=== PATIENT | female | born 1990 | race Caucasian/White ===

== ENCOUNTER 2017-03-14 09:38 | Emergency (ER) | payer MEDICAID ==
[~2017-03-14] VITALS: Ht 170.2 cm; Wt 69.4 kg
[~2017-03-14 09:38] MED LIST: ASPI325T17 PO; HYDR-3237 PO; NIFE10CA2 PO; None per pt; POLY17PO3 PO
[2017-03-14] MEDS ORDERED: MAALOX/HYOSCYAMINE/LIDOCAINE 45 ML BTL ONE (10:20)
[2017-03-14] MEDS ORDERED: MAALOX/HYOSCYAMINE/LIDOCAINE 45 ML BTL PO ONE (10:30)
[2017-03-14 10:50] LABS: HEMATOCRIT 46.1 % (34.6-47.8); HEMOGLOBIN 15.9 g/dL (11.7-16.4); WHITE BLOOD COUNT 8.9 x10^3/uL (3.4-10)
[2017-03-14 11:10] LABS: BLOOD UREA NITROGEN 9 mg/dL (7-18)
[2017-03-14 11:16] LABS: ASPARTATE AMINO TRANSFERASE 17 U/L (15-37)
[2017-03-14 12:35] VITALS: BP 135/75
== END 2017-03-14 12:37 | disposition home or self-care (01) ==
LOC: ED 10:14
DX: R10.84 Generalized abdominal pain (principal); J02.9 Acute pharyngitis, unspecified
CPT/HCPCS: 36415; 80053; 81003; 83690; 84703; 85025; 86677; 99284

== ENCOUNTER 2017-10-20 13:44 | Inpatient (IN) | payer MEDICAID ==
[~2017-10-20] VITALS: Ht 170.2 cm; Wt 75.3 kg
[2017-10-20] MEDS ORDERED: ONDANSETRON ODT 4 MG ONE (15:04)
[2017-10-20 15:26] LABS: BASOPHILS % (AUTO) 0 % (0-1); EOSINOPHILS # (AUTO) 0.01 x10^3/uL (0-0.4); EOSINOPHILS % (AUTO) 0 % (1-7); LYMPHOCYTES # (AUTO) 0.98 x10^3/uL (1-3.4); LYMPHOCYTES % (AUTO) 7 % (22-44); MD NO; MEAN CORPUSCULAR HGB CONC 34.1 g/dL (32.4-35.8); MEAN CORPUSCULAR VOLUME 96.7 fL (80-100); MEAN PLATELET VOLUME 8.5 fL (7.4-10.4); MONOCYTES # (AUTO) 0.28 x10^3/uL (0.2-0.8); MONOCYTES % (AUTO) 2 % (2-9); NEUTROPHILS # (AUTO) 13.64 x10^3/uL (1.8-6.8); NEUTROPHILS % (AUTO) 92 % (42-75); PLATELET COUNT 429 x10^3/uL (130-400); RED BLOOD COUNT 4.86 x10^6/uL (3.82-5.3); RED CELL DISTRIBUTION WIDTH 13.6 % (9.6-15.2)
[2017-10-20] MEDS ORDERED: ONDANSETRON ODT 4 MG PO ONE (15:30)
[2017-10-20 15:34] LABS: CALCIUM 9.1 mg/dL (8.5-10.1); CHLORIDE 111 mmol/L (98-107)
[2017-10-20 15:42] LABS: ALBUMIN 4.1 g/dL (3.4-5.0); ALKALINE PHOSPHATASE 77 U/L (45-117); ANION GAP 11 mmol/L (5-15); BILIRUBIN,TOTAL 0.9 mg/dL (0.2-1.0); CREATININE 0.83 mg/dL (0.55-1.02); TOTAL PROTEIN 8.3 g/dL (6.4-8.2)
[2017-10-20 15:48] LABS: ALANINE AMINOTRANSFERASE 24 U/L (12-78)
[2017-10-20] MEDS ORDERED: METOCLOPRAMIDE 5 MG/ML, 2ML ONE (16:01)
[2017-10-20] MEDS ORDERED: DICYCLOMINE 10 MG/ML, 2ML ONE (16:01)
[2017-10-20] MEDS ORDERED: DICYCLOMINE 10 MG/ML, 2ML IM ONE (16:30)
[2017-10-20] MEDS ORDERED: METOCLOPRAMIDE 5 MG/ML, 2ML IVPush ONE (16:30)
[2017-10-20 16:48] LABS: MICROSCOPIC INDICATED
[2017-10-20] MEDS ORDERED: SODIUM CHLORIDE 0.9% 1,000ML IVBOLUS ONE ×2 (17:00→17:30)
[2017-10-20 17:01] LABS: CULTURE INDICATED? NO
[2017-10-20] MEDS ORDERED: KETOROLAC 30 MG/1 ML ONE (17:47)
[2017-10-20] MEDS ORDERED: KETOROLAC 30 MG/1 ML IVPush ONE (18:00)
[2017-10-20] MEDS ORDERED: PROMETHAZINE 25 MG/ML, 1ML ONE (18:07)
[2017-10-20] MEDS ORDERED: PROMETHAZINE 25 MG/ML, 1ML IM ONE (18:30)
[2017-10-20] MEDS ORDERED: NS + 20MEQ KCL 1,000 ML IV SCH (19:03)
[2017-10-20] MEDS ORDERED: ZOLPIDEM 5MG TABLET PO PRN (19:30)
[2017-10-20] MEDS ORDERED: ONDANSETRON 2MG/ML, 2ML IVPush PRN (19:30)
[2017-10-20] MEDS ORDERED: ACETAMINOPHEN 325 MG TABLET PO PRN (19:30)
[2017-10-20] MEDS: PROMETHAZINE 25 MG/ML, 1ML IM PRN (22:09)
[2017-10-20] MEDS: NS + 20MEQ KCL 1,000 ML IV SCH (22:50)
[2017-10-20 22:53] VITALS: BP 129/79
[2017-10-21 01:02] LABS: MICROSCOPIC INDICATED
[2017-10-21 01:15] LABS: CULTURE INDICATED? NO
[2017-10-21 01:29] VITALS: BP 95/56
[2017-10-21] MEDS: METOCLOPRAMIDE 5 MG/ML, 2ML IVPush PRN ×4 (01:41→21:06)
[2017-10-21 01:42] LABS: CLOSTRIDIUM DIFFICILE ANTIGEN NEGATIVE; CLOSTRIDIUM DIFFICILE TOXIN NEGATIVE (Negative)
[2017-10-21 05:25] LABS: ANION GAP 11 mmol/L (5-15); CALCIUM 7.5 mg/dL (8.5-10.1); CHLORIDE 110 mmol/L (98-107)
[2017-10-21 05:28] LABS: CREATININE 0.65 mg/dL (0.55-1.02)
[2017-10-21] MEDS: PROMETHAZINE 25 MG/ML, 1ML IM PRN ×4 (06:04→23:17)
[2017-10-21] MEDS ORDERED: POTASSIUM CHLORIDE 20 MEQ TAB.ER.PRT PO ONE (06:30)
[2017-10-21 07:46] VITALS: BP 115/64
[2017-10-21] MEDS ORDERED: KETOROLAC 30 MG/1 ML IVPush SCH (09:00)
[2017-10-21] MEDS ORDERED: POTASSIUM CHLORIDE 40 MEQ in SODIUM CHLORIDE 0.9% 500 ML IV ONE (09:00)
[2017-10-21] MEDS: NS + 20MEQ KCL 1,000 ML IV SCH (09:04)
[2017-10-21] MEDS ORDERED: PROCHLORPERAZINE 5 MG/ML, 2ML IV PRN (12:30)
[2017-10-21 13:23] VITALS: BP 135/86
[2017-10-21] MEDS: KETOROLAC 30 MG/1 ML IVPush SCH ×2 (15:30→21:06)
[2017-10-21 19:20] VITALS: BP 106/65
[2017-10-22 02:19] VITALS: BP 128/79
[2017-10-22] MEDS: PROMETHAZINE 25 MG/ML, 1ML IM PRN ×2 (02:39→08:00)
[2017-10-22] MEDS: METOCLOPRAMIDE 5 MG/ML, 2ML IVPush PRN (02:39)
[2017-10-22] MEDS: NS + 20MEQ KCL 1,000 ML IV SCH ×2 (02:39→11:50)
[2017-10-22] MEDS: KETOROLAC 30 MG/1 ML IVPush SCH ×3 (02:39→11:02)
[2017-10-22 06:27] LABS: ANION GAP 8 mmol/L (5-15); CHLORIDE 115 mmol/L (98-107)
[2017-10-22] MEDS ORDERED: PROCHLORPERAZINE 5 MG/ML, 2ML IV PRN (07:30)
[2017-10-22] MEDS ORDERED: MAALOX/HYOSCYAMINE/LIDOCAINE 45 ML BTL PO ONE (07:30)
[2017-10-22] MEDS ORDERED: ONDANSETRON ODT 8 MG PO PRN (07:30)
[2017-10-22 07:50] LABS: ALKALINE PHOSPHATASE 54 U/L (45-117); BILIRUBIN,TOTAL 0.5 mg/dL (0.2-1.0); TOTAL PROTEIN 6.1 g/dL (6.4-8.2)
[2017-10-22 08:14] VITALS: BP 129/81
[2017-10-22 08:32] LABS: ALANINE AMINOTRANSFERASE 25 U/L (12-78)
[2017-10-22] MEDS ORDERED: LORazepam 2 MG/ML, 1ML IVPush ONE (11:30)
[2017-10-22 12:44] VITALS: BP 109/68
[2017-10-22] MEDS ORDERED: KETO10TA PO (16:31)
[2017-10-22] MEDS ORDERED: ONDA4TAB13 SL (16:31)
[2017-10-22] MEDS ORDERED: PROC5TAB40 PO (16:31)
== END 2017-10-22 17:40 | disposition home or self-care (01) | DRG 394 ==
LOC: ED 17:10 → EDIP 18:14 → INTOOBSV 18:14 → 4NOR 20:10 → OBSVTOIN 10-21 12:18
PROVIDERS: ADMIT Family Medicine; ATTEND Family Medicine
DX: K52.1 Toxic gastroenteritis and colitis (principal); N17.9 Acute kidney failure, unspecified; E87.2 Acidosis; A08.4 Viral intestinal infection, unspecified; R51 Headache; E86.9 Volume depletion, unspecified; E87.8 Other disorders of electrolyte and fluid balance, not elsewhere classified; E86.0 Dehydration; F17.210 Nicotine dependence, cigarettes, uncomplicated; R81 Glycosuria; E87.6 Hypokalemia; I25.10 Atherosclerotic heart disease of native coronary artery without angina pectoris; Z82.49 Family history of ischemic heart disease and other diseases of the circulatory system; Z97.5 Presence of (intrauterine) contraceptive device
CPT/HCPCS: 36415; 76705; 80048; 80053; 81001; 83690; 84703; 85025; 87046; 87324; 87427; 87798; 89055; 96361; 96372; 96374; 96375; G0378; J1885; J2550; J3480; Q0162; J0500; J0780; J2060; J2765; J7030; J7040

== ENCOUNTER 2018-01-17 11:11 | Inpatient (IN) | payer MEDICAID ==
[~2018-01-17] VITALS: Ht 167.6 cm; Wt 72.8 kg
[~2018-01-17 11:11] MED LIST changes: +KETO10TA PO; +ONDA4TAB13 SL; +PROC5TAB40 PO
[2018-01-17] MEDS ORDERED: ONDANSETRON ODT 4 MG PO ONE (12:00)
[2018-01-17] MEDS ORDERED: ONDANSETRON ODT 4 MG ONE (12:15)
[2018-01-17] MEDS ORDERED: PROMETHAZINE 25 MG/ML, 1ML ONE (12:15)
[2018-01-17] MEDS ORDERED: FAMOTIDINE 20 MG/2 ML ONE (12:16)
[2018-01-17 12:25] LABS: BASOPHILS # (AUTO) 0.03 x10^3/uL (0-0.1); BASOPHILS % (AUTO) 0 % (0-1); EOSINOPHILS # (AUTO) 0.13 x10^3/uL (0-0.4); EOSINOPHILS % (AUTO) 1 % (1-7); LYMPHOCYTES % (AUTO) 14 % (22-44); MD NO; MEAN CORPUSCULAR HEMOGLOBIN 32.6 pg (27.0-34.8); MEAN CORPUSCULAR HGB CONC 33.7 g/dL (32.4-35.8); MEAN CORPUSCULAR VOLUME 96.8 fL (80-100); MEAN PLATELET VOLUME 8.3 fL (7.4-10.4); MONOCYTES # (AUTO) 0.32 x10^3/uL (0.2-0.8); MONOCYTES % (AUTO) 2 % (2-9); NEUTROPHILS # (AUTO) 12.15 x10^3/uL (1.8-6.8); NEUTROPHILS % (AUTO) 83 % (42-75); PLATELET COUNT 445 x10^3/uL (130-400); RED BLOOD COUNT 4.82 x10^6/uL (3.82-5.3); RED CELL DISTRIBUTION WIDTH 14.3 % (9.6-15.2)
[2018-01-17 12:30] LABS: ALBUMIN 3.7 g/dL (3.4-5.0); ANION GAP 11 mmol/L (5-15); CALCIUM 8.9 mg/dL (8.5-10.1); CHLORIDE 110 mmol/L (98-107)
[2018-01-17] MEDS ORDERED: SODIUM CHLORIDE 0.9% 1,000ML IVBOLUS ONE ×3 (12:30→17:00)
[2018-01-17] MEDS ORDERED: PROMETHAZINE 25 MG/ML, 1ML IM ONE (12:30)
[2018-01-17] MEDS ORDERED: SODIUM CHLORIDE FLUSH 10ML SYR IVF ONE (12:30)
[2018-01-17] MEDS ORDERED: FAMOTIDINE 20 MG/2 ML IVP ONE (12:30)
[2018-01-17 12:37] LABS: ALANINE AMINOTRANSFERASE 27 U/L (12-78); ALKALINE PHOSPHATASE 84 U/L (45-117); BILIRUBIN,TOTAL 0.6 mg/dL (0.2-1.0); CREATININE 0.79 mg/dL (0.55-1.02); TOTAL PROTEIN 7.6 g/dL (6.4-8.2)
[2018-01-17] MEDS ORDERED: MAALOX/HYOSCYAMINE/LIDOCAINE 45 ML BTL PO ONE (13:30)
[2018-01-17] MEDS ORDERED: METOCLOPRAMIDE 5 MG/ML, 2ML ONE (14:55)
[2018-01-17] MEDS ORDERED: METOCLOPRAMIDE 5 MG/ML, 2ML IVPush ONE (15:00)
[2018-01-17] MEDS ORDERED: ONDANSETRON 2MG/ML, 2ML ONE (15:12)
[2018-01-17] MEDS ORDERED: ONDANSETRON 2MG/ML, 2ML IVPush ONE (15:30)
[2018-01-17] MEDS ORDERED: ENOXAPARIN 40 MG/0.4 ML SQ SCH (16:00)
[2018-01-17] MEDS ORDERED: ACETAMINOPHEN 325 MG TABLET PO PRN (16:00)
[2018-01-17] MEDS ORDERED: SODIUM CHLORIDE FLUSH 10ML SYR IVF PRN (16:00)
[2018-01-17] MEDS ORDERED: METOCLOPRAMIDE 5 MG/ML, 2ML IVPush PRN (16:00)
[2018-01-17] MEDS ORDERED: KETOROLAC 10MG TABLET PO PRN (16:30)
[2018-01-17 16:51] LABS: MICROSCOPIC INDICATED
[2018-01-17 16:53] LABS: CULTURE INDICATED? YES
[2018-01-17 18:11] VITALS: BP 118/81
[2018-01-17 19:54] VITALS: BP 131/73
[2018-01-17] MEDS: FAMOTIDINE 20 MG/2 ML IVPush SCH (20:03)
[2018-01-17] MEDS: ONDANSETRON 2MG/ML, 2ML IVPush PRN (20:56)
[2018-01-17] MEDS: LACTATED RINGERS 1,000 ML IV SCH (21:33)
[2018-01-18 02:30] VITALS: BP 107/62
[2018-01-18 04:41] LABS: BASOPHILS # (AUTO) 0.07 x10^3/uL (0-0.1); BASOPHILS % (AUTO) 1 % (0-1); EOSINOPHILS # (AUTO) 0.03 x10^3/uL (0-0.4); EOSINOPHILS % (AUTO) 0 % (1-7); LYMPHOCYTES # (AUTO) 2.63 x10^3/uL (1-3.4); LYMPHOCYTES % (AUTO) 18 % (22-44); MD NO; MEAN CORPUSCULAR HEMOGLOBIN 32.1 pg (27.0-34.8); MEAN CORPUSCULAR HGB CONC 33.5 g/dL (32.4-35.8); MONOCYTES # (AUTO) 0.86 x10^3/uL (0.2-0.8); MONOCYTES % (AUTO) 6 % (2-9); NEUTROPHILS % (AUTO) 76 % (42-75); PLATELET COUNT 401 x10^3/uL (130-400); RED CELL DISTRIBUTION WIDTH 14.3 % (9.6-15.2)
[2018-01-18 04:43] LABS: ALANINE AMINOTRANSFERASE 22 U/L (12-78); ALBUMIN 2.8 g/dL (3.4-5.0); ANION GAP 8 mmol/L (5-15); CALCIUM 7.8 mg/dL (8.5-10.1); CHLORIDE 112 mmol/L (98-107)
[2018-01-18 04:46] LABS: ALKALINE PHOSPHATASE 62 U/L (45-117); BILIRUBIN,TOTAL 0.7 mg/dL (0.2-1.0); CREATININE 0.58 mg/dL (0.55-1.02); TOTAL PROTEIN 5.9 g/dL (6.4-8.2)
[2018-01-18] MEDS: LACTATED RINGERS 1,000 ML IV SCH (06:26)
[2018-01-18 07:45] VITALS: BP 133/80
[2018-01-18] MEDS: FAMOTIDINE 20 MG/2 ML IVPush SCH (10:19)
[2018-01-18] MEDS: ONDANSETRON 2MG/ML, 2ML IVPush PRN ×2 (10:25→16:21)
[2018-01-18] MEDS ORDERED: METOCLOPRAMIDE 10MG TABLET PO PRN (10:30)
[2018-01-18] MEDS ORDERED: ONDANSETRON ODT 8 MG PO PRN (11:00)
[2018-01-18 14:56] VITALS: BP 135/88
[2018-01-18] MEDS ORDERED: METO10TA2 PO (15:49)
[2018-01-18] MEDS ORDERED: ONDA8TAB16 PO (15:49)
== END 2018-01-18 16:59 | disposition home or self-care (01) | DRG 392 ==
LOC: ED 12:02 → EDIP 15:37 → 3NE 17:04
PROVIDERS: ADMIT Family Medicine; ATTEND Family Medicine
DX: R11.2 Nausea with vomiting, unspecified (principal); F19.20 Other psychoactive substance dependence, uncomplicated; F12.90 Cannabis use, unspecified, uncomplicated; E86.0 Dehydration; F17.200 Nicotine dependence, unspecified, uncomplicated; Z82.49 Family history of ischemic heart disease and other diseases of the circulatory system; K52.9 Noninfective gastroenteritis and colitis, unspecified; Z82.62 Family history of osteoporosis; T40.7X5A Adverse effect of cannabis (derivatives), initial encounter; Y92.89 Other specified places as the place of occurrence of the external cause
CPT/HCPCS: 36415; 99285; S0028; 80053; 81001; 83605; 83690; 84703; 85025; 87086; 96361; 96372; 96374; 96375; J1650; J2405; J2550; Q0162; J2765; J7030; J7120

== ENCOUNTER 2018-03-18 07:34 | Observation (INO) | payer MEDICAID ==
[~2018-03-18] VITALS: Ht 167.6 cm; Wt 71.7 kg
[~2018-03-18 07:34] MED LIST changes: +METO10TA2 PO; +NIFE30TA15 PO; +ONDA8TAB16 PO
[2018-03-18] MEDS ORDERED: HALOPERIDOL 5 MG/ML ONE (08:54)
[2018-03-18 08:59] LABS: BASOPHILS # (AUTO) 0.01 x10^3/uL (0-0.1); BASOPHILS % (AUTO) 0 % (0-1); EOSINOPHILS # (AUTO) 0.28 x10^3/uL (0-0.4); EOSINOPHILS % (AUTO) 2 % (1-7); LYMPHOCYTES # (AUTO) 1.84 x10^3/uL (1-3.4); LYMPHOCYTES % (AUTO) 12 % (22-44); MD NO; MEAN CORPUSCULAR HEMOGLOBIN 32.3 pg (27.0-34.8); MEAN CORPUSCULAR VOLUME 94.8 fL (80-100); MONOCYTES # (AUTO) 0.57 x10^3/uL (0.2-0.8); MONOCYTES % (AUTO) 4 % (2-9); NEUTROPHILS % (AUTO) 82 % (42-75); PLATELET COUNT 447 x10^3/uL (130-400); RED BLOOD COUNT 4.48 x10^6/uL (3.82-5.3); RED CELL DISTRIBUTION WIDTH 15.6 % (9.6-15.2)
[2018-03-18] MEDS ORDERED: HALOPERIDOL 5 MG/ML IV ONE (09:00)
[2018-03-18] MEDS ORDERED: DIPHENHYDRAMINE 50 MG/ML, 1ML IVPush ONE (09:00)
[2018-03-18] MEDS ORDERED: SODIUM CHLORIDE 0.9% 1,000ML IVBOLUS ONE (09:00)
[2018-03-18 09:11] LABS: ALANINE AMINOTRANSFERASE 22 U/L (12-78); ALBUMIN 3.4 g/dL (3.4-5.0); ANION GAP 8 mmol/L (5-15); CALCIUM 8.3 mg/dL (8.5-10.1); CHLORIDE 109 mmol/L (98-107); CREATININE 0.79 mg/dL (0.55-1.02)
[2018-03-18 09:16] LABS: ALKALINE PHOSPHATASE 66 U/L (45-117); BILIRUBIN,TOTAL 0.5 mg/dL (0.2-1.0); TOTAL PROTEIN 6.9 g/dL (6.4-8.2)
[2018-03-18] MEDS ORDERED: PROMETHAZINE 25 MG/ML, 1ML IM ONE (11:00)
[2018-03-18] MEDS ORDERED: PROMETHAZINE 25 MG/ML, 1ML ONE (11:23)
[2018-03-18] MEDS ORDERED: METOCLOPRAMIDE 5 MG/ML, 2ML IVPush PRN (11:30)
[2018-03-18] MEDS ORDERED: ONDANSETRON ODT 4 MG PO PRN (11:30)
[2018-03-18] MEDS ORDERED: POLYETHYLENE GLYCOL 17 GM PACKET PO PRN (11:30)
[2018-03-18] MEDS ORDERED: DOCUSATE 100 MG CAPSULE PO PRN (11:30)
[2018-03-18 11:56] VITALS: BP 130/72
[2018-03-18 12:56] VITALS: BP 130/72
[2018-03-18] MEDS: POTASSIUM CHLORIDE 30 MEQ in SODIUM CHLORIDE 0.45% 1,000 ML IV SCH (13:43)
[2018-03-18] MEDS: PROMETHAZINE 25 MG/ML, 1ML IM PRN ×3 (14:00→23:01)
[2018-03-18 14:03] LABS: MICROSCOPIC INDICATED
[2018-03-18 15:28] LABS: AMPHETAMINE SCREEN, URINE Negative (Negative); BARBITURATE SCREEN, URINE Negative (Negative); BENZODIAZEPINE SCREEN, URINE Negative (Negative); CANNABINOID SCREEN, URINE Positive (Negative); COCAINE SCREEN, URINE Negative (Negative); METHADONE SCREEN, URINE Negative (Negative); OPIATE SCREEN, URINE Negative (Negative)
[2018-03-18] MEDS: POTASSIUM CHLORIDE 20 MEQ TAB.ER.PRT PO SCH (17:56)
[2018-03-18 19:33] VITALS: BP 111/66
[2018-03-19 01:52] VITALS: BP 104/69
[2018-03-19] MEDS: POTASSIUM CHLORIDE 30 MEQ in SODIUM CHLORIDE 0.45% 1,000 ML IV SCH (03:51)
[2018-03-19 05:18] LABS: ANION GAP 8 mmol/L (5-15); CALCIUM 8.4 mg/dL (8.5-10.1); CHLORIDE 111 mmol/L (98-107)
[2018-03-19 05:20] LABS: BASOPHILS # (AUTO) 0.07 x10^3/uL (0-0.1); BASOPHILS % (AUTO) 1 % (0-1); CREATININE 0.63 mg/dL (0.55-1.02); EOSINOPHILS # (AUTO) 0.32 x10^3/uL (0-0.4); EOSINOPHILS % (AUTO) 3 % (1-7); LYMPHOCYTES # (AUTO) 3.68 x10^3/uL (1-3.4); LYMPHOCYTES % (AUTO) 38 % (22-44); MD NO; MEAN CORPUSCULAR HEMOGLOBIN 31.6 pg (27.0-34.8); MEAN CORPUSCULAR HGB CONC 33.2 g/dL (32.4-35.8); MEAN CORPUSCULAR VOLUME 95.2 fL (80-100); MEAN PLATELET VOLUME 8.7 fL (7.4-10.4); MONOCYTES % (AUTO) 7 % (2-9); NEUTROPHILS % (AUTO) 51 % (42-75); PLATELET COUNT 362 x10^3/uL (130-400); RED BLOOD COUNT 4.09 x10^6/uL (3.82-5.3); RED CELL DISTRIBUTION WIDTH 15.5 % (9.6-15.2)
[2018-03-19] MEDS: PROMETHAZINE 25 MG/ML, 1ML IM PRN ×2 (06:29→10:50)
[2018-03-19 06:53] VITALS: BP 118/77
[2018-03-19] MEDS: POTASSIUM CHLORIDE 20 MEQ TAB.ER.PRT PO SCH (07:46)
[2018-03-19] MEDS ORDERED: PROM25TA10 PO (10:22)
== END 2018-03-19 11:34 | disposition home or self-care (01) ==
LOC: ED 09:00 → 3NE 11:05 → DCLOUNGE 03-19 11:27
PROVIDERS: ADMIT Family Medicine; ATTEND Family Medicine
DX: R11.2 Nausea with vomiting, unspecified (principal); E87.6 Hypokalemia; E83.51 Hypocalcemia; E03.9 Hypothyroidism, unspecified; D72.829 Elevated white blood cell count, unspecified; F19.20 Other psychoactive substance dependence, uncomplicated; F17.210 Nicotine dependence, cigarettes, uncomplicated; I73.00 Raynaud's syndrome without gangrene; K58.0 Irritable bowel syndrome with diarrhea; G43.909 Migraine, unspecified, not intractable, without status migrainosus; Z82.62 Family history of osteoporosis
CPT/HCPCS: 36415; 80048; 80053; 80307; 81001; 83690; 84703; 85025; 96361; 96365; 96366; 96372; 96375; 99285; G0378; J1200; J1630; J2550; J3480; J7030

== ENCOUNTER 2018-09-18 20:37 | Outpatient (CLI) | payer MEDICAID ==
[~2018-09-18] VITALS: Ht 170.2 cm; Wt 78.1 kg
[~2018-09-18 20:37] MED LIST changes: -NIFE10CA2 PO; +NIFE10CA49 PO; +POLY17PO29 PO; -POLY17PO3 PO; +PROM25TA10 PO
[2018-09-18 21:00] LABS: MICROSCOPIC NOT IND
[2018-09-18 21:14] LABS: AMPHETAMINE SCREEN, URINE Negative (Negative); BARBITURATE SCREEN, URINE Negative (Negative); BENZODIAZEPINE SCREEN, URINE Negative (Negative); CANNABINOID SCREEN, URINE Negative (Negative); COCAINE SCREEN, URINE Negative (Negative); METHADONE SCREEN, URINE Negative (Negative); OPIATE SCREEN, URINE Negative (Negative)
== END 2018-09-18 21:28 | disposition home or self-care (01) ==
LOC: LDOP 20:37
PROVIDERS: ATTEND Obstetrics & Gynecology
DX: O26.892 Other specified pregnancy related conditions, second trimester (principal); R10.9 Unspecified abdominal pain; M54.9 Dorsalgia, unspecified; Z3A.22 22 weeks gestation of pregnancy
CPT/HCPCS: 59025; 80307; 81003; 87086; 99211; G0463

== ENCOUNTER 2018-12-25 16:50 | Outpatient (CLI) | payer MEDICAID ==
[~2018-12-25] VITALS: Ht 167.6 cm; Wt 91.4 kg
[2018-12-25 17:30] LABS: MICROSCOPIC NOT IND
[2018-12-25 17:38] LABS: AMPHETAMINE SCREEN, URINE Negative (Negative); BARBITURATE SCREEN, URINE Negative (Negative); BENZODIAZEPINE SCREEN, URINE Negative (Negative); CANNABINOID SCREEN, URINE Negative (Negative); COCAINE SCREEN, URINE Negative (Negative); METHADONE SCREEN, URINE Negative (Negative); OPIATE SCREEN, URINE Negative (Negative)
[2018-12-25 17:40] VITALS: BP 118/72
== END 2018-12-25 19:01 | disposition home or self-care (01) ==
LOC: LDOP 16:50
PROVIDERS: ATTEND Obstetrics & Gynecology
DX: O62.9 Abnormality of forces of labor, unspecified (principal); Z3A.37 37 weeks gestation of pregnancy
CPT/HCPCS: 59025; 80307; 81003; 87086; 99211; G0463

== ENCOUNTER 2018-12-25 21:50 | Inpatient (IN) | payer MEDICAID ==
[~2018-12-25] VITALS: Ht 167.6 cm; Wt 91.4 kg
[2018-12-25] MEDS ORDERED: FENTANYL PF 100 MCG/2ML ONE (22:08)
[2018-12-25] MEDS ORDERED: FENTANYL PF 100 MCG/2ML IVPush PRN ×2 (22:11→23:00)
[2018-12-25] MEDS ORDERED: OXYTOCIN 30U/ 0.9% NaCL 500ML 500 ML IV ONE (22:49)
[2018-12-25] MEDS ORDERED: FENTANYL/BUPIV./NS/PF 250 ML EPIDCONT SCH (22:50)
[2018-12-25] MEDS ORDERED: LIDOCAINE 1%, 20ML ONE (22:54)
[2018-12-25] MEDS ORDERED: MISOPROSTOL 200 MCG TABLET ONE (22:54)
[2018-12-25] MEDS ORDERED: NEWBORN KIT ONE (22:54)
[2018-12-25] MEDS ORDERED: OXYTOCIN 30U/ 0.9% NaCL 500ML 500 ML ONE (22:54)
[2018-12-25] MEDS ORDERED: FENTANYL PF 100 MCG/2ML IV PRN (23:00)
[2018-12-25] MEDS ORDERED: LACTATED RINGERS 1,000 ML IVBOLUS PRN (23:00)
[2018-12-25] MEDS ORDERED: ONDANSETRON 2MG/ML, 2ML IVPush PRN (23:00)
[2018-12-25 23:18] LABS: MEAN CORPUSCULAR HEMOGLOBIN 30.5 pg (27.0-34.8); MEAN CORPUSCULAR HGB CONC 32.5 g/dL (32.4-35.8); MEAN CORPUSCULAR VOLUME 93.8 fL (80-100); MEAN PLATELET VOLUME 9.3 fL (7.4-10.4); PLATELET COUNT 310 x10^3/uL (130-400); RED BLOOD COUNT 3.89 x10^6/uL (3.82-5.3); RED CELL DISTRIBUTION WIDTH 14.4 % (9.6-15.2)
[2018-12-25] MEDS ORDERED: BUPIVACAINE 0.25% ONE (23:22)
[2018-12-26 00:18] LABS: BASOPHILS # (AUTO) 0.14 x10^3/uL (0-0.1); BASOPHILS % (AUTO) 1 % (0-1); EOSINOPHILS # (AUTO) 0.42 x10^3/uL (0-0.4); EOSINOPHILS % (AUTO) 3 % (1-7); LYMPHOCYTES # (AUTO) 2.29 x10^3/uL (1-3.4); LYMPHOCYTES % (AUTO) 14 % (22-44); MD SCAN; MONOCYTES # (AUTO) 0.81 x10^3/uL (0.2-0.8); MONOCYTES % (AUTO) 5 % (2-9); NEUTROPHILS # (AUTO) 12.94 x10^3/uL (1.8-6.8); NEUTROPHILS % (AUTO) 78 % (42-75)
[2018-12-26] MEDS ORDERED: EPHEDRINE 50 MG/ML, 1ML ONE (00:59)
[2018-12-26] MEDS ORDERED: FAMOTIDINE 20 MG TABLET ONE (01:37)
[2018-12-26] MEDS: FAMOTIDINE 20 MG TABLET PO SCH (01:39)
[2018-12-26] MEDS ORDERED: ONDANSETRON 2MG/ML, 2ML ONE (03:32)
[2018-12-26] MEDS: LACTATED RINGERS 1,000 ML IV SCH ×2 (03:41→13:44)
[2018-12-26] MEDS: EPHEDRINE 50 MG/ML, 1ML IVPush PRN ×2 (04:46→04:51)
[2018-12-26] MEDS ORDERED: D5%-LACTATED RINGERS 1,000 ML IV SCH (08:05)
[2018-12-26] MEDS ORDERED: OXYTOCIN 30U/ 0.9% NaCL 500ML 500 ML IV SCH (16:51)
[2018-12-26] MEDS ORDERED: IBUPROFEN 600 MG TABLET ONE (16:59)
[2018-12-26] MEDS ORDERED: DIPH,PERTUSS(ACELL),TET VAC/PF NC IM-VACC PRN (17:00)
[2018-12-26] MEDS ORDERED: CARBOPROST TROMETHAMINE 250 MCG/ML, 1ML IM PRN (17:00)
[2018-12-26] MEDS ORDERED: RHOGAM FROM BLOOD BANK 1 NOTE EA IM/IV ONE (17:00)
[2018-12-26] MEDS ORDERED: MEASLES,MUMPS&RUBELLA VACC/PF 0.5 ML SQ-VACC PRN (17:00)
[2018-12-26] MEDS ORDERED: MISOPROSTOL 200 MCG TABLET PR PRN (17:00)
[2018-12-26] MEDS ORDERED: ACETAMINOPHEN 325 MG TABLET PO PRN (17:00)
[2018-12-26] MEDS ORDERED: METHYLERGONOVINE 0.2 MG/ML IM PRN (17:00)
[2018-12-26] MEDS ORDERED: OXYcodone/APAP 5/325MG TABLET PO PRN (17:00)
[2018-12-26] MEDS ORDERED: HEPARIN 5,000 UNITS/ML, 1ML SQ SCH (17:30)
[2018-12-26] MEDS: IBUPROFEN 600 MG TABLET PO PRN (17:49)
[2018-12-26] MEDS ORDERED: OXYTOCIN 30U/ 0.9% NaCL 500ML 500 ML ONE (18:38)
[2018-12-26 19:45] VITALS: BP 118/77
[2018-12-27] MEDS: OXYcodone/APAP 5/325MG TABLET PO PRN ×5 (00:04→17:00)
[2018-12-27] MEDS: DOCUSATE 100 MG CAPSULE PO PRN ×2 (00:05→08:08)
[2018-12-27 00:15] VITALS: BP 109/67
[2018-12-27 00:45] LABS: MEAN CORPUSCULAR HEMOGLOBIN 31.6 pg (27.0-34.8); MEAN CORPUSCULAR HGB CONC 33.1 g/dL (32.4-35.8); MEAN CORPUSCULAR VOLUME 95.4 fL (80-100); MEAN PLATELET VOLUME 9.5 fL (7.4-10.4); PLATELET COUNT 255 x10^3/uL (130-400); RED BLOOD COUNT 3.54 x10^6/uL (3.82-5.3); RED CELL DISTRIBUTION WIDTH 14.4 % (9.6-15.2)
[2018-12-27 01:00] LABS: BASOPHILS % (AUTO) 0 % (0-1); EOSINOPHILS # (AUTO) 0.36 x10^3/uL (0-0.4); EOSINOPHILS % (AUTO) 2 % (1-7); LYMPHOCYTES # (AUTO) 2.19 x10^3/uL (1-3.4); LYMPHOCYTES % (AUTO) 11 % (22-44); MD SCAN; MONOCYTES # (AUTO) 0.54 x10^3/uL (0.2-0.8); MONOCYTES % (AUTO) 3 % (2-9); NEUTROPHILS # (AUTO) 16.71 x10^3/uL (1.8-6.8); NEUTROPHILS % (AUTO) 84 % (42-75)
[2018-12-27 03:37] VITALS: BP 91/55
[2018-12-27 07:50] VITALS: BP 110/72
[2018-12-27] MEDS: IBUPROFEN 600 MG TABLET PO PRN ×2 (08:08→14:09)
[2018-12-27] MEDS: FAMOTIDINE 20 MG TABLET PO SCH (08:08)
[2018-12-27] MEDS ORDERED: PRENATAL VIT/IRON/FA 1 EACH TABLET PO SCH (09:00)
[2018-12-27] MEDS ORDERED: IBUP-1222 PO (12:04)
[2018-12-27 14:09] VITALS: BP 96/62
== END 2018-12-27 17:14 | disposition home or self-care (01) | DRG 807 ==
LOC: LDOP 21:50 → LDIP 22:58 → 2NW 12-26 19:27
PROVIDERS: ADMIT Obstetrics & Gynecology; ATTEND Obstetrics & Gynecology
PROC: 10E0XZZ Delivery of Products of Conception, External Approach (ICD-10-PCS; principal; 2018-12-26)
PROC: 10H07YZ Insertion of Other Device into Products of Conception, Via Natural or Artificial Opening (ICD-10-PCS; 2018-12-26)
PROC: 3E0R3BZ Introduction of Anesthetic Agent into Spinal Canal, Percutaneous Approach (ICD-10-PCS; 2018-12-26)
PROC: 00HU33Z Insertion of Infusion Device into Spinal Canal, Percutaneous Approach (ICD-10-PCS; 2018-12-26)
DX: O69.1XX0 Labor and delivery complicated by cord around neck, with compression, not applicable or unspecified (principal); Z37.0 Single live birth; Z3A.37 37 weeks gestation of pregnancy
CPT/HCPCS: 36415; J7121; 85025; 86850; 86900; G0378; J2405; J3010; J2590; J7120

== ENCOUNTER 2019-05-12 07:33 | Emergency (ER) | payer MEDICAID ==
[~2019-05-12] VITALS: Ht 167.6 cm; Wt 80.4 kg
[~2019-05-12 07:33] MED LIST changes: +IBUP-1222 PO
--- NOTE | 2019-05-12 07:45 | NUR ---
PT HAS HAD INTRACTIBLE VOMITING SINCE THIS MORNING WITH ABDOMINAL PAIN
[2019-05-12] MEDS ORDERED: ZIPRASIDONE 20 MG INJ IM ONE ×2 (08:00→08:14)
[2019-05-12] MEDS ORDERED: METOCLOPRAMIDE 5 MG/ML, 2ML IVPush ONE (08:00)
[2019-05-12 08:04] LABS: MICROSCOPIC NOT IND
[2019-05-12 08:07] LABS: CULTURE INDICATED? NO
[2019-05-12] MEDS ORDERED: METOCLOPRAMIDE 5 MG/ML, 2ML ONE (08:15)
[2019-05-12 08:24] LABS: BASOPHILS # (AUTO) 0.04 x10^3/uL (0-0.1); BASOPHILS % (AUTO) 0 % (0-1); EOSINOPHILS # (AUTO) 0.52 x10^3/uL (0-0.4); EOSINOPHILS % (AUTO) 4 % (1-7); LYMPHOCYTES # (AUTO) 2.24 x10^3/uL (1-3.4); LYMPHOCYTES % (AUTO) 15 % (22-44); MD NO; MEAN CORPUSCULAR HEMOGLOBIN 32.8 pg (27.0-34.8); MEAN CORPUSCULAR HGB CONC 33.6 g/dL (32.4-35.8); MEAN CORPUSCULAR VOLUME 97.6 fL (80-100); MEAN PLATELET VOLUME 8.6 fL (7.4-10.4); MONOCYTES # (AUTO) 0.58 x10^3/uL (0.2-0.8); MONOCYTES % (AUTO) 4 % (2-9); NEUTROPHILS # (AUTO) 11.11 x10^3/uL (1.8-6.8); NEUTROPHILS % (AUTO) 77 % (42-75); PLATELET COUNT 436 x10^3/uL (130-400); RED BLOOD COUNT 4.97 x10^6/uL (3.82-5.3)
--- NOTE | 2019-05-12 08:26 | NUR ---
MEDICATED PER ORDERS FOR CONTINUED VOMITING
[2019-05-12 08:37] LABS: ALBUMIN 3.8 g/dL (3.4-5.0); ANION GAP 6 mmol/L (5-15); CALCIUM 9.4 mg/dL (8.5-10.1); CHLORIDE 109 mmol/L (98-107)
--- NOTE | 2019-05-12 09:06 | NUR ---
PT CONTINUES TO WRETCH DESPITE MEDS. MD AWARE WITH ORDERS TO BE GIVEN FOR SAME.
[2019-05-12] MEDS ORDERED: PROMETHAZINE 25 MG/ML, 1ML ONE (09:08)
[2019-05-12] MEDS ORDERED: PROMETHAZINE 25 MG/ML, 1ML IM ONE (09:30)
--- NOTE | 2019-05-12 09:47 | NUR ---
PT SLEEPING, NO LONGER VOMITING
--- NOTE | 2019-05-12 11:02 | NUR ---
PT RESTING ON BED; STATES HER SISTER IS ON HER WAY TO ED FOR PT TRANSPORT.
[2019-05-12 11:28] VITALS: BP 108/68
--- NOTE | 2019-05-12 11:29 | NUR ---
PT DROWSY, STATES SHE DOES NOT FEEL WELL BUT NOT VOMITING. DISCHARGE TO BE GIVEN WITH SISTER ARRIVAL.
--- NOTE | 2019-05-12 11:45 | NUR ---
vomited when getting into wheelchair. pt given prescription for phenergan and has zofran at home.
== END 2019-05-12 11:48 | disposition home or self-care (01) ==
LOC: ED 11:30
DX: R11.2 Nausea with vomiting, unspecified (principal); F17.210 Nicotine dependence, cigarettes, uncomplicated; G43.909 Migraine, unspecified, not intractable, without status migrainosus
CPT/HCPCS: 36415; 80048; 81003; 82040; 84703; 85025; 96372; 96374; 99283; J2550; J2765; J3486

== ENCOUNTER 2019-05-14 03:21 | Observation (INO) | payer MEDICAID ==
[~2019-05-14] VITALS: Ht 167.6 cm; Wt 79.1 kg
--- NOTE | 2019-05-14 03:39 | NUR ---
PT AMBULATES FROM TRIAGE TO ROOM WITH STEADY GAIT.
[2019-05-14] MEDS ORDERED: ONDANSETRON ODT 8 MG PO ONE (04:00)
[2019-05-14] MEDS ORDERED: METOCLOPRAMIDE 10MG TABLET PO ONE (04:00)
[2019-05-14] MEDS ORDERED: METOCLOPRAMIDE 10MG TABLET ONE (04:01)
[2019-05-14] MEDS ORDERED: ONDANSETRON ODT 4 MG ONE ×2 (04:01→04:10)
[2019-05-14 04:04] LABS: BASOPHILS # (AUTO) 0.09 x10^3/uL (0-0.1); BASOPHILS % (AUTO) 1 % (0-1); EOSINOPHILS # (AUTO) 0.08 x10^3/uL (0-0.4); EOSINOPHILS % (AUTO) 1 % (1-7); LYMPHOCYTES # (AUTO) 2.34 x10^3/uL (1-3.4); LYMPHOCYTES % (AUTO) 20 % (22-44); MD NO; MEAN CORPUSCULAR HEMOGLOBIN 32.6 pg (27.0-34.8); MEAN CORPUSCULAR HGB CONC 33.2 g/dL (32.4-35.8); MEAN CORPUSCULAR VOLUME 98.1 fL (80-100); MEAN PLATELET VOLUME 8.5 fL (7.4-10.4); MONOCYTES # (AUTO) 0.72 x10^3/uL (0.2-0.8); MONOCYTES % (AUTO) 6 % (2-9); NEUTROPHILS # (AUTO) 8.45 x10^3/uL (1.8-6.8); NEUTROPHILS % (AUTO) 72 % (42-75); PLATELET COUNT 408 x10^3/uL (130-400); RED BLOOD COUNT 4.72 x10^6/uL (3.82-5.3)
--- NOTE | 2019-05-14 04:06 | NUR ---
PT SOBBING IN ROOM. AISHWARYA ELIZABETH NOTIFIED OF PT DISPOSITION. AISHWARYA ELIZABETH TO SEE PT AT THIS TIME.
[2019-05-14] MEDS ORDERED: PROMETHAZINE 25 MG/ML, 1ML ONE ×2 (04:10→05:22)
[2019-05-14 04:14] LABS: ALANINE AMINOTRANSFERASE 26 U/L (12-78); ALBUMIN 3.6 g/dL (3.4-5.0); ANION GAP 7 mmol/L (5-15); CALCIUM 9.2 mg/dL (8.5-10.1); CHLORIDE 103 mmol/L (98-107)
[2019-05-14 04:17] LABS: ALKALINE PHOSPHATASE 70 U/L (45-117); BILIRUBIN,TOTAL 0.6 mg/dL (0.2-1.0); CREATININE 0.93 mg/dL (0.55-1.02); TOTAL PROTEIN 7.4 g/dL (6.4-8.2)
--- NOTE | 2019-05-14 04:17 | NUR ---
PT MEDICATED PER MAR AT THIS TIME.
[2019-05-14] MEDS ORDERED: PROMETHAZINE 25 MG/ML, 1ML IM ONE (04:30)
--- NOTE | 2019-05-14 05:28 | NUR ---
PT MEDICATED PER SEP FOR NAUSEA.
[2019-05-14 05:38] LABS: MICROSCOPIC INDICATED
[2019-05-14 06:16] LABS: CULTURE INDICATED? NO
[2019-05-14 06:18] LABS: HCG UR SG > 1.045 (1.003-1.030)
--- NOTE | 2019-05-14 06:43 | NUR ---
DR. PALACIO TO SEE PT AT THIS TIME.
--- NOTE | 2019-05-14 07:11 | NUR ---
RECEIVED REPORT FROM YUE GORDON RN. PT RESTING ON [facility]. JUANN. MONITORS APPLIED. VSS. PT AWARE OF NEW POC FOR ADMIT.
[2019-05-14] MEDS ORDERED: POTASSIUM CHLORIDE 20 MEQ in SODIUM CHLORIDE 0.9% 1,000 ML IV ONE (07:17)
[2019-05-14] MEDS ORDERED: NS + 20MEQ KCL 1,000 ML IV ONE (07:28)
[2019-05-14] MEDS ORDERED: METOCLOPRAMIDE 5 MG/ML, 2ML ONE (07:28)
[2019-05-14] MEDS ORDERED: SODIUM CHLORIDE FLUSH 10ML SYR IVF PRN (07:30)
[2019-05-14] MEDS: METOCLOPRAMIDE 5 MG/ML, 2ML IVPush PRN ×3 (07:33→18:14)
--- NOTE | 2019-05-14 07:34 | NUR ---
[facility] AT BEDSIDE.
--- NOTE | 2019-05-14 07:50 | NUR ---
REPORT GIVEN TO TASNEEM OCAMPO RN. ALL QUESTIONS ANSWERED. AWAITING PT TRANSPORT.
[2019-05-14] MEDS ORDERED: POLYETHYLENE GLYCOL 17 GM PACKET PO PRN (08:00)
[2019-05-14] MEDS ORDERED: IBUPROFEN 600 MG TABLET PO PRN (08:00)
[2019-05-14] MEDS: NICOTINE 14MG/24 HR PATCH.TD24 TD SCH (08:00)
[2019-05-14 08:27] VITALS: BP 123/78
[2019-05-14] MEDS: PROMETHAZINE 25 MG/ML, 1ML IM PRN ×4 (09:00→21:26)
[2019-05-14] MEDS: ONDANSETRON 2MG/ML, 2ML IVPush PRN ×3 (09:36→21:25)
[2019-05-14 11:20] VITALS: BP 123/78
[2019-05-14] MEDS ORDERED: POTASSIUM CHLORIDE 20 MEQ in SODIUM CHLORIDE 0.9% 250 ML IV ONE (12:00)
[2019-05-14] MEDS ORDERED: ACETAMINOPHEN 100 ML IVPB ONE (13:00)
[2019-05-14] MEDS ORDERED: KETOROLAC 30 MG/1 ML IVPush ONE ×2 (13:30→22:00)
[2019-05-14 14:31] VITALS: BP 122/84
[2019-05-14] MEDS ORDERED: INSULIN LISPRO 100 UNITS/ML, PEN SQ-INSULIN SCH (16:30)
[2019-05-14] MEDS: LACTATED RINGERS 1,000 ML IV SCH (16:30)
[2019-05-14] MEDS ORDERED: GLUCAGON 1 MG IM PRN (16:30)
[2019-05-14] MEDS ORDERED: DEXTROSE 4 GM TAB.CHEW PO PRN (16:30)
[2019-05-14] MEDS ORDERED: DEXTROSE 50%, 50ML SYRINGE IVPush PRN (16:30)
[2019-05-14 18:47] VITALS: BP 119/78
[2019-05-14] MEDS: SODIUM CHLORIDE FLUSH 10ML SYR IVF SCH (21:25)
[2019-05-14] MEDS: ACETAMINOPHEN 325 MG TABLET PO PRN (21:25)
[2019-05-15 00:29] VITALS: BP 105/66
[2019-05-15] MEDS: LACTATED RINGERS 1,000 ML IV SCH ×2 (01:30→09:30)
[2019-05-15] MEDS: METOCLOPRAMIDE 5 MG/ML, 2ML IVPush PRN (01:31)
[2019-05-15] MEDS: PROMETHAZINE 25 MG/ML, 1ML IM PRN ×2 (01:32→04:39)
[2019-05-15] MEDS: ONDANSETRON 2MG/ML, 2ML IVPush PRN (03:20)
[2019-05-15 05:20] LABS: CHLORIDE 107 mmol/L (98-107)
[2019-05-15 05:31] LABS: ANION GAP 7 mmol/L (5-15); CALCIUM 8.4 mg/dL (8.5-10.1); CREATININE 0.73 mg/dL (0.55-1.02)
[2019-05-15 06:39] VITALS: BP 113/66
[2019-05-15] MEDS ORDERED: PANTOPROZOLE 40MG TABLET PO SCH (07:30)
[2019-05-15] MEDS: NICOTINE 14MG/24 HR PATCH.TD24 TD SCH (08:00)
[2019-05-15] MEDS: SODIUM CHLORIDE FLUSH 10ML SYR IVF SCH (08:44)
[2019-05-15] MEDS: ACETAMINOPHEN 325 MG TABLET PO PRN (11:19)
[2019-05-15 12:37] VITALS: BP 109/74
== END 2019-05-15 14:05 | disposition home or self-care (01) ==
LOC: ED 04:12 → EDIP 07:17 → INTOOBSV 07:17 → 3N 08:04
PROVIDERS: ADMIT Family Medicine; ATTEND Family Medicine
DX: F12.10 Cannabis abuse, uncomplicated (principal); F17.210 Nicotine dependence, cigarettes, uncomplicated; E86.0 Dehydration; R10.9 Unspecified abdominal pain; E03.9 Hypothyroidism, unspecified; G43.909 Migraine, unspecified, not intractable, without status migrainosus; K52.9 Noninfective gastroenteritis and colitis, unspecified; K59.00 Constipation, unspecified; R63.0 Anorexia
CPT/HCPCS: 36415; 80048; 80053; 81001; 81025; 83690; 83735; 85025; 96361; 96372; 96375; 96376; 99284; G0378; J1885; J2405; J2550; J2765; J3480; J7030; J7050; J7120; Q0162; 96374

== ENCOUNTER 2019-08-31 12:44 | Emergency (ER) | payer MEDICAID ==
[~2019-08-31] VITALS: Ht 170.2 cm; Wt 77.4 kg
[~2019-08-31 12:44] MED LIST changes: +NIFE-7 PO; -NIFE30TA15 PO
--- NOTE | 2019-08-31 13:03 | NUR ---
Pt ambulated from triage to room with steady gait and balance. HOWIE.
[2019-08-31] MEDS ORDERED: PROMETHAZINE 25 MG/ML, 1ML ONE (13:20)
[2019-08-31] MEDS ORDERED: DIPHENHYDRAMINE 50 MG/ML, 1ML ONE (13:20)
[2019-08-31] MEDS ORDERED: SODIUM CHLORIDE 0.9% 1,000ML IVBOLUS ONE (13:30)
[2019-08-31] MEDS ORDERED: DIPHENHYDRAMINE 50 MG/ML, 1ML IV ONE (13:30)
[2019-08-31] MEDS ORDERED: PROMETHAZINE 25 MG/ML, 1ML IM ONE (13:30)
[2019-08-31] MEDS ORDERED: SODIUM CHLORIDE FLUSH 10ML SYR IVF ONE (13:30)
--- NOTE | 2019-08-31 13:43 | NUR ---
Pt resting on gurney connected to manager cardiac cath, NIBP cuff, and continous pulse ox monitor, PIV estavlished, labs drawn, PIV fluids and medications given per EMAR. Pt has bedrail up x 1 and call light within reach. Pt's mom at bedside. NADN. No needs expressed.
[2019-08-31 13:47] LABS: MEAN CORPUSCULAR HEMOGLOBIN 32.4 pg (27.0-34.8); MEAN CORPUSCULAR HGB CONC 33.8 g/dL (32.4-35.8); MEAN CORPUSCULAR VOLUME 95.8 fL (80-100); MEAN PLATELET VOLUME 8.9 fL (7.4-10.4); PLATELET COUNT 422 x10^3/uL (130-400); RED CELL DISTRIBUTION WIDTH 15.5 % (9.6-15.2)
[2019-08-31 13:59] LABS: ALANINE AMINOTRANSFERASE 31 U/L (12-78); ANION GAP 12 mmol/L (5-15); CALCIUM 9.5 mg/dL (8.5-10.1); CHLORIDE 105 mmol/L (98-107); CREATININE 1.05 mg/dL (0.55-1.02)
[2019-08-31 14:03] LABS: ALKALINE PHOSPHATASE 92 U/L (45-117); BILIRUBIN,TOTAL 0.8 mg/dL (0.2-1.0); TOTAL PROTEIN 8.3 g/dL (6.4-8.2)
[2019-08-31 14:22] LABS: MD YES
[2019-08-31 14:23] LABS: BANDS%(MANUAL) 13 % (0-7); LYMPH#(MANUAL) 1.01 x10^3/uL (1-3.4); LYMPHS% (MANUAL) 6 % (22-44); MONOS#(MANUAL) 0.34 x10^3/uL (0.3-2.7); MONOS% (MANUAL) 2 % (2-9); SEG#(MANUAL) 13.35 x10^3/uL (1.8-6.8); SEGS% (MANUAL) 79 % (42-75)
[2019-08-31 14:24] LABS: <PLATELET ESTIMATE> INCREASED; <PLT MORPHOLOGY> NORMAL PLT MORPH; ANISOCYTOSIS 1+
--- NOTE | 2019-08-31 14:51 | NUR ---
TASK RN: REPORT RECEIVED FROM FELIPE CAMPBELL. CARE ASSUMED.
[2019-08-31] MEDS ORDERED: METOCLOPRAMIDE 5 MG/ML, 2ML IVPush ONE (15:30)
[2019-08-31] MEDS ORDERED: METOCLOPRAMIDE 5 MG/ML, 2ML ONE (15:35)
--- NOTE | 2019-08-31 15:38 | NUR ---
TASK RN: PT MEDICATED PER ORDERS.
[2019-08-31 15:39] VITALS: BP 135/78
--- NOTE | 2019-08-31 17:14 | NUR ---
Patient/Caregiver given discharge instructions and they have confirmed that they understand the instructions. Patient ambulatory with steady gait.
== END 2019-08-31 17:26 | disposition home or self-care (01) ==
LOC: ED 16:30
DX: R10.13 Epigastric pain (principal); R11.15 Cyclical vomiting syndrome unrelated to migraine; R11.0 Nausea; E86.0 Dehydration; R19.7 Diarrhea, unspecified; G43.909 Migraine, unspecified, not intractable, without status migrainosus; F17.200 Nicotine dependence, unspecified, uncomplicated
CPT/HCPCS: 36415; 80053; 83690; 84703; 85025; 96361; 96372; 96374; 96375; 99284; J1200; J2550; J2765; J7030

== ENCOUNTER 2019-12-12 08:49 | Emergency (ER) | payer MEDICAID ==
[~2019-12-12] VITALS: Ht 167.6 cm; Wt 76.9 kg
[2019-12-12] MEDS ORDERED: PROMETHAZINE 25 MG/ML, 1ML ONE ×2 (09:39→13:30)
[2019-12-12] MEDS ORDERED: DIPHENHYDRAMINE 50 MG/ML, 1ML ONE (09:39)
[2019-12-12] MEDS ORDERED: PROMETHAZINE 25 MG/ML, 1ML IV ONE (10:00)
[2019-12-12] MEDS ORDERED: DIPHENHYDRAMINE 50 MG/ML, 1ML IVPush ONE (10:00)
[2019-12-12] MEDS ORDERED: PROMETHAZINE 25 MG/ML, 1ML IM ONE ×2 (10:00→13:00)
[2019-12-12 10:24] LABS: MEAN CORPUSCULAR HGB CONC 33.4 g/dL (32.4-35.8); MEAN CORPUSCULAR VOLUME 95.9 fL (80-100); MEAN PLATELET VOLUME 8.9 fL (7.4-10.4); PLATELET COUNT 429 x10^3/uL (130-400); RED BLOOD COUNT 5.09 x10^6/uL (3.82-5.3); RED CELL DISTRIBUTION WIDTH 13.8 % (9.6-15.2)
[2019-12-12] MEDS ORDERED: ONDANSETRON 2MG/ML, 2ML ONE (10:24)
[2019-12-12] MEDS ORDERED: ONDANSETRON 2MG/ML, 2ML IVPush ONE (10:30)
[2019-12-12] MEDS ORDERED: SODIUM CHLORIDE 0.9% 1,000ML IVBOLUS ONE (10:30)
[2019-12-12 10:31] LABS: ALANINE AMINOTRANSFERASE 24 U/L (12-78); ALBUMIN 3.7 g/dL (3.4-5.0); ANION GAP 11 mmol/L (5-15); CALCIUM 9.3 mg/dL (8.5-10.1); CHLORIDE 111 mmol/L (98-107); CREATININE 0.82 mg/dL (0.55-1.02)
[2019-12-12 10:33] LABS: ALKALINE PHOSPHATASE 83 U/L (45-117); BILIRUBIN,TOTAL 0.4 mg/dL (0.2-1.0)
[2019-12-12 10:50] LABS: BASOPHILS # (AUTO) 0.07 x10^3/uL (0-0.1); BASOPHILS % (AUTO) 1 % (0-1); EOSINOPHILS # (AUTO) 0.45 x10^3/uL (0-0.4); EOSINOPHILS % (AUTO) 3 % (1-7); LYMPHOCYTES # (AUTO) 2.75 x10^3/uL (1-3.4); LYMPHOCYTES % (AUTO) 19 % (22-44); MD SCAN; MONOCYTES # (AUTO) 0.68 x10^3/uL (0.2-0.8); MONOCYTES % (AUTO) 5 % (2-9); NEUTROPHILS # (AUTO) 10.93 x10^3/uL (1.8-6.8); NEUTROPHILS % (AUTO) 73 % (42-75)
[2019-12-12] MEDS ORDERED: HALOPERIDOL 5 MG/ML ONE (11:07)
[2019-12-12] MEDS ORDERED: HALOPERIDOL 5 MG/ML IM ONE (11:30)
[2019-12-12 13:40] VITALS: BP 111/80
[2019-12-14] MEDS ORDERED: NORT25CA78 PO (02:05)
== END 2019-12-12 13:53 | disposition home or self-care (01) ==
LOC: ED 09:13
DX: R11.2 Nausea with vomiting, unspecified (principal); R10.84 Generalized abdominal pain; F12.188 Cannabis abuse with other cannabis-induced disorder; G43.909 Migraine, unspecified, not intractable, without status migrainosus; F17.200 Nicotine dependence, unspecified, uncomplicated; Z72.9 Problem related to lifestyle, unspecified
CPT/HCPCS: 36415; 80053; 81025; 83690; 85025; 96361; 96372; 96374; 96375; 99284; J1200; J1630; J2405; J2550; J7030

== ENCOUNTER 2019-12-13 08:11 | Emergency (ER) | payer MEDICAID ==
[~2019-12-13] VITALS: Ht 167.6 cm; Wt 78.4 kg
[2019-12-13] MEDS ORDERED: FAMOTIDINE 20 MG/2 ML IV ONE (08:30)
[2019-12-13] MEDS ORDERED: SODIUM CHLORIDE 0.9% 1,000ML IVBOLUS ONE (08:30)
[2019-12-13] MEDS ORDERED: ONDANSETRON 2MG/ML, 2ML IVPush ONE (08:30)
[2019-12-13] MEDS ORDERED: ONDANSETRON 2MG/ML, 2ML ONE (08:39)
[2019-12-13] MEDS ORDERED: FAMOTIDINE 20 MG/2 ML ONE (08:40)
--- NOTE | 2019-12-13 08:45 | NUR ---
PT STATES SHE WAS HERE YESTERDAY WITH VOMITING AND SINCE THEN UNABLE TO KEEP ANYTHING DOWN. PT LAST VOMITED ENROUTE TO HOSPITAL. IV ESTABLISHED WITH FLUIDS INFUSING PER ORDERS AND MEDCATED NOTED ON SEP.
[2019-12-13 08:59] LABS: MEAN CORPUSCULAR HEMOGLOBIN 32.3 pg (27.0-34.8); MEAN CORPUSCULAR HGB CONC 33.7 g/dL (32.4-35.8); MEAN CORPUSCULAR VOLUME 95.7 fL (80-100); MEAN PLATELET VOLUME 8.7 fL (7.4-10.4); PLATELET COUNT 437 x10^3/uL (130-400); RED BLOOD COUNT 4.66 x10^6/uL (3.82-5.3); RED CELL DISTRIBUTION WIDTH 13.9 % (9.6-15.2)
[2019-12-13 09:09] LABS: MICROSCOPIC INDICATED
[2019-12-13 09:15] LABS: ALANINE AMINOTRANSFERASE 24 U/L (12-78); ALBUMIN 3.8 g/dL (3.4-5.0); ANION GAP 11 mmol/L (5-15); CALCIUM 9.4 mg/dL (8.5-10.1); CHLORIDE 105 mmol/L (98-107)
[2019-12-13 09:18] LABS: ALKALINE PHOSPHATASE 83 U/L (45-117); BILIRUBIN,TOTAL 0.5 mg/dL (0.2-1.0); CREATININE 0.84 mg/dL (0.55-1.02); TOTAL PROTEIN 8.1 g/dL (6.4-8.2)
[2019-12-13 10:06] LABS: BASOPHILS # (AUTO) 0.02 x10^3/uL (0-0.1); BASOPHILS % (AUTO) 0 % (0-1); EOSINOPHILS # (AUTO) 0.01 x10^3/uL (0-0.4); EOSINOPHILS % (AUTO) 0 % (1-7); LYMPHOCYTES # (AUTO) 1.96 x10^3/uL (1-3.4); LYMPHOCYTES % (AUTO) 13 % (22-44); MD SCAN; MONOCYTES # (AUTO) 0.88 x10^3/uL (0.2-0.8); MONOCYTES % (AUTO) 6 % (2-9); NEUTROPHILS # (AUTO) 12.33 x10^3/uL (1.8-6.8); NEUTROPHILS % (AUTO) 81 % (42-75)
[2019-12-13] MEDS ORDERED: POTASSIUM CHLORIDE 20 MEQ TAB.ER.PRT PO ONE (10:30)
[2019-12-13] MEDS ORDERED: SODIUM CHLORIDE FLUSH 10ML SYR IVF ONE (10:30)
--- NOTE | 2019-12-13 10:53 | NUR ---
PT AWAITING ABDOMINAL CT. HAS NOT VOMITED SINCE ARRIVAL BUT IS NAUSEATED.
[2019-12-13] MEDS ORDERED: POTASSIUM CHLORIDE 20 MEQ TAB.ER.PRT ONE (10:55)
[2019-12-13] MEDS ORDERED: OMNIPAQUE 350 MG/ML, 100ML BOTTLE ONE (11:15)
[2019-12-13 11:19] VITALS: BP 107/64
--- NOTE | 2019-12-13 12:14 | NUR ---
PT TOLERATED PO MEDS AND WATER WITHOUT VOMITING.DISCHARGE GIVEN AND AMBULATED TO DISCHARGE WINDOW,STEADY GAIT
[2019-12-14] MEDS ORDERED: NORT25CA78 PO (02:05)
== END 2019-12-13 12:17 | disposition home or self-care (01) ==
LOC: ED 09:25
DX: R11.2 Nausea with vomiting, unspecified (principal); E87.6 Hypokalemia; R10.9 Unspecified abdominal pain; G43.909 Migraine, unspecified, not intractable, without status migrainosus
CPT/HCPCS: 36415; 74177; 80053; 81001; 83690; 85025; 87086; 96361; 96374; 96375; 99285; J2405; J3490; J7030; Q9967

== ENCOUNTER 2020-03-29 18:32 | Emergency (ER) | payer MEDICAID ==
[~2020-03-29] VITALS: Ht 167.6 cm; Wt 81.0 kg
[~2020-03-29 18:32] MED LIST changes: +NORT25CA78 PO
[2020-03-29 19:18] VITALS: BP 126/78
--- NOTE | 2020-03-29 19:46 | NUR ---
BUSINESS DEVELOPMENT MANAGER: PT. TO ROOM FROM LOBBY AT THIS TIME.
== END 2020-03-29 21:55 | disposition home or self-care (01) ==
LOC: ED 21:00
DX: S93.492A Sprain of other ligament of left ankle, initial encounter (principal); X50.0XXA Overexertion from strenuous movement or load, initial encounter; Y93.89 Activity, other specified; Y92.009 Unspecified place in unspecified non-institutional (private) residence as the place of occurrence of the external cause; Y99.8 Other external cause status
CPT/HCPCS: 99284

== ENCOUNTER 2020-04-13 00:14 | Emergency (ER) | payer MEDICAID ==
[~2020-04-13] VITALS: Ht 167.6 cm; Wt 76.0 kg
[2020-04-13 00:18] VITALS: BP 135/85
[2020-04-13] MEDS ORDERED: SODIUM CHLORIDE FLUSH 10ML SYR IVF ONE (00:30)
[2020-04-13 00:57] LABS: BASOPHILS % (AUTO) 0 % (0-1); EOSINOPHILS % (AUTO) 0 % (1-7); LYMPHOCYTES % (AUTO) 9 % (22-44); MEAN CORPUSCULAR HEMOGLOBIN 30.6 pg (27.0-34.8); MEAN CORPUSCULAR HGB CONC 33.3 g/dL (32.4-35.8); MONOCYTES % (AUTO) 3 % (2-9); NEUTROPHILS % (AUTO) 87 % (42-75); PLATELET COUNT 567 x10^3/uL (130-400); RED BLOOD COUNT 4.73 x10^6/uL (3.82-5.3); RED CELL DISTRIBUTION WIDTH 14.6 % (9.6-15.2)
[2020-04-13 01:10] LABS: ALANINE AMINOTRANSFERASE 27 U/L (12-78); ALBUMIN 4.2 g/dL (3.4-5.0); ANION GAP 13 mmol/L (5-15); CALCIUM 9.6 mg/dL (8.5-10.1); CHLORIDE 103 mmol/L (98-107); CREATININE 0.99 mg/dL (0.55-1.02)
[2020-04-13 01:15] LABS: ALKALINE PHOSPHATASE 90 U/L (45-117); BILIRUBIN,TOTAL 0.5 mg/dL (0.2-1.0); TOTAL PROTEIN 8.6 g/dL (6.4-8.2)
[2020-04-13 01:58] LABS: MD MORPH REVIEW ONLY
[2020-04-13 01:59] LABS: <RBC MORPHOLOGY> NORMAL
[2020-04-13 02:00] LABS: <PLATELET ESTIMATE> INCREASED; <PLT MORPHOLOGY> NORMAL PLT MORPH
--- NOTE | 2020-04-13 02:24 | NUR ---
NIL X 1 WHEN CALLED FOR ROOM.
--- NOTE | 2020-04-13 02:46 | NUR ---
NIL X 2 WHEN CALLED FOR ROOM.
--- NOTE | 2020-04-13 03:08 | NUR ---
NIL X 3 WHEN CALLED FOR ROOM.
[2020-04-13] MEDS ORDERED: CITA20TA9 PO (10:51)
== END 2020-04-13 03:11 | disposition left against medical advice (07) ==
LOC: ED 02:40
DX: R11.10 Vomiting, unspecified (principal)
CPT/HCPCS: 36415; 80053; 83690; 84703; 85025; 99283

== ENCOUNTER 2020-06-02 18:48 | Emergency (ER) | payer MEDICAID ==
[~2020-06-02] VITALS: Ht 167.6 cm; Wt 77.0 kg
[~2020-06-02 18:48] MED LIST changes: +CITA20TA9 PO
--- NOTE | 2020-06-02 19:19 | NUR ---
ER PA WAS IN TO SEE PT.
[2020-06-02] MEDS ORDERED: PROMETHAZINE 25 MG/ML, 1ML ONE (19:20)
[2020-06-02] MEDS ORDERED: OMEP-110 PO (19:27)
--- NOTE | 2020-06-02 19:29 | NUR ---
PT WAS VOMITING/DRY HEAVING, NOW SUBSIDED A LITTLE. MEDICATED PER ORDERS. INSTRUCTED ON NEED FOR CLEAN CATCH URINE SAMPLE.
[2020-06-02] MEDS ORDERED: PROMETHAZINE 25 MG/ML, 1ML IM ONE (19:30)
[2020-06-02 19:40] LABS: BASOPHILS % (AUTO) 0 % (0-1); EOSINOPHILS % (AUTO) 0 % (1-7); LYMPHOCYTES % (AUTO) 6 % (22-44); MEAN CORPUSCULAR HEMOGLOBIN 31.4 pg (27.0-34.8); MEAN CORPUSCULAR HGB CONC 33.5 g/dL (32.4-35.8); MEAN PLATELET VOLUME 8.3 fL (7.4-10.4); MONOCYTES % (AUTO) 2 % (2-9); NEUTROPHILS % (AUTO) 92 % (42-75); PLATELET COUNT 535 x10^3/uL (130-400); RED BLOOD COUNT 4.21 x10^6/uL (3.82-5.3); RED CELL DISTRIBUTION WIDTH 15.6 % (9.6-15.2)
--- NOTE | 2020-06-02 19:44 | NUR ---
PT STILL DRY HEAVING. ER PA WAS IN FOR RECHECK.
[2020-06-02 19:48] LABS: ALANINE AMINOTRANSFERASE 24 U/L (12-78); ANION GAP 10 mmol/L (5-15); CALCIUM 9.1 mg/dL (8.5-10.1); CHLORIDE 109 mmol/L (98-107); CREATININE 0.74 mg/dL (0.55-1.02)
[2020-06-02 19:50] LABS: ALKALINE PHOSPHATASE 87 U/L (45-117); BILIRUBIN,TOTAL 0.5 mg/dL (0.2-1.0); TOTAL PROTEIN 8.1 g/dL (6.4-8.2)
[2020-06-02] MEDS ORDERED: HALOPERIDOL 5 MG/ML ONE (19:54)
[2020-06-02] MEDS ORDERED: HALOPERIDOL 5 MG/ML IM ONE (20:00)
--- NOTE | 2020-06-02 20:00 | NUR ---
PT MEDICATED WITH HALDOL PER ORDERS. SLEEPY AFTER PHENERGAN BUT AWAKENS EASILY. ON MONITORS.
[2020-06-02 20:05] LABS: MD SCAN
[2020-06-02 20:12] LABS: HCG UR SG 1.028 (1.003-1.030); MICROSCOPIC AUTO
--- NOTE | 2020-06-02 20:23 | NUR ---
ML ELIZABETH AT BS NOW.
--- NOTE | 2020-06-02 20:54 | NUR ---
PT REFUSED PO CHALLENGE. STATES "I NEED TO JUST SLEEP IT OFF, OR I WANT TO BE ADMITTED." ER PA AT FOR RECHECK NOW.
[2020-06-02 20:57] VITALS: BP 119/62
--- NOTE | 2020-06-02 21:39 | NUR ---
D/C INSTRUCTIONS, MEDS & F/U APPT RV'WD WITH PT, SHE VERBALIZES UNDERSTANDING. RX GIVEN X1. PT AMBULATED OUT OF ED WITHOUT DIFFICULTY. STATES HER IS PICKING HER UP.
== END 2020-06-02 21:39 | disposition home or self-care (01) ==
LOC: ED 19:46
DX: F12.10 Cannabis abuse, uncomplicated (principal); R11.2 Nausea with vomiting, unspecified; R10.84 Generalized abdominal pain; G43.909 Migraine, unspecified, not intractable, without status migrainosus
CPT/HCPCS: 36415; 80053; 81001; 81025; 83690; 85025; 96372; 99284; J1630; J2550

== ENCOUNTER 2020-06-21 10:33 | Observation (INO) | payer MEDICAID ==
[~2020-06-21] VITALS: Ht 167.6 cm; Wt 76.5 kg
[~2020-06-21 10:33] MED LIST changes: +OMEP-110 PO
--- NOTE | 2020-06-21 11:15 | NUR ---
YOLA ELIZABETH AT BEDSIDE.
[2020-06-21] MEDS ORDERED: PROMETHAZINE 25 MG/ML, 1ML IM ONE ×2 (11:30→14:00)
[2020-06-21] MEDS ORDERED: DIPHENHYDRAMINE 50 MG/ML, 1ML IVPush ONE (11:30)
[2020-06-21] MEDS ORDERED: FAMOTIDINE 20 MG/2 ML IV ONE (11:30)
--- NOTE | 2020-06-21 11:42 | NUR ---
PT REFUSING LABS AND RAD UNTIL MEDICATED. PIV STARTED, LABS DRAWN AND SENT TO LAB.
[2020-06-21] MEDS ORDERED: DIPHENHYDRAMINE 50 MG/ML, 1ML ONE (11:44)
[2020-06-21] MEDS ORDERED: PROMETHAZINE 25 MG/ML, 1ML ONE ×2 (11:44→14:03)
[2020-06-21 11:45] LABS: BASOPHILS % (AUTO) 0 % (0-1); EOSINOPHILS % (AUTO) 1 % (1-7); LYMPHOCYTES % (AUTO) 9 % (22-44); MEAN CORPUSCULAR HGB CONC 33.5 g/dL (32.4-35.8); MONOCYTES % (AUTO) 3 % (2-9); NEUTROPHILS % (AUTO) 87 % (42-75); PLATELET COUNT 550 x10^3/uL (130-400); RED BLOOD COUNT 4.56 x10^6/uL (3.82-5.3); RED CELL DISTRIBUTION WIDTH 15.3 % (9.6-15.2)
[2020-06-21] MEDS ORDERED: FAMOTIDINE 20 MG/2 ML ONE (11:45)
--- NOTE | 2020-06-21 11:47 | NUR ---
PT AMBULATORY W/ A STEADY GAIT TO BR PROVIDED CUP FOR URINE SAMPLE, RETURNED TO ROOM W/O INCIDENT. PT MEDICATED PER EMAR.
[2020-06-21 11:54] LABS: ALANINE AMINOTRANSFERASE 24 U/L (12-78); ANION GAP 11 mmol/L (5-15); CALCIUM 9.7 mg/dL (8.5-10.1); CHLORIDE 108 mmol/L (98-107); CREATININE 0.94 mg/dL (0.55-1.02)
[2020-06-21 11:57] LABS: ALKALINE PHOSPHATASE 88 U/L (45-117); BILIRUBIN,TOTAL 0.8 mg/dL (0.2-1.0); TOTAL PROTEIN 8.3 g/dL (6.4-8.2)
--- NOTE | 2020-06-21 12:01 | NUR ---
RAD CALLED. PT READY FOR XR.
--- NOTE | 2020-06-21 12:04 | NUR ---
URINE COLLECTED AND SENT TO LAB.
--- NOTE | 2020-06-21 12:08 | NUR ---
REPORT GIVEN TO TIFFANIE WANG. PT RESTING ON [facility] W/ CALL LIGHT IN REACH AND SIDE RAILS UPX2. HOWIE LAYTON. AWAITING XR.
[2020-06-21 12:10] LABS: MD SCAN
[2020-06-21 12:16] LABS: HCG UR SG 1.028 (1.003-1.030)
[2020-06-21 12:18] LABS: MICROSCOPIC INDICATED
[2020-06-21] MEDS ORDERED: HALOPERIDOL 5 MG/ML ONE (12:57)
[2020-06-21] MEDS ORDERED: HALOPERIDOL 5 MG/ML IM ONE (13:00)
[2020-06-21] MEDS ORDERED: SODIUM CHLORIDE 0.9% 1,000ML IVBOLUS ONE (14:30)
[2020-06-21] MEDS ORDERED: SODIUM CHLORIDE FLUSH 10ML SYR IVF PRN (14:30)
[2020-06-21] MEDS ORDERED: MELATONIN 5 MG TABLET PO PRN (15:30)
[2020-06-21] MEDS ORDERED: ONDANSETRON ODT 4 MG PO PRN (15:30)
[2020-06-21] MEDS ORDERED: ENALAPRILAT 1.25 MG/ML, 2ML IVPush PRN (15:30)
[2020-06-21] MEDS: SODIUM CHLORIDE 0.9% 1,000 ML IV SCH ×2 (15:30→23:35)
[2020-06-21] MEDS ORDERED: IBUPROFEN 600 MG TABLET PO PRN (15:30)
[2020-06-21] MEDS ORDERED: ONDANSETRON 2MG/ML, 2ML IVPush PRN (15:30)
[2020-06-21] MEDS ORDERED: METOCLOPRAMIDE 5 MG/ML, 2ML IVPush PRN (15:30)
[2020-06-21] MEDS ORDERED: POLYETHYLENE GLYCOL 17 GM PACKET PO PRN (15:30)
[2020-06-21] MEDS ORDERED: DOCUSATE 100 MG CAPSULE PO PRN (15:30)
[2020-06-21] MEDS ORDERED: ACETAMINOPHEN 325 MG TABLET PO PRN (15:30)
[2020-06-21] MEDS ORDERED: LORazepam 2 MG/ML, 1ML IVPush PRN (16:00)
[2020-06-21] MEDS ORDERED: ENOXAPARIN 40 MG/0.4 ML ONE (16:30)
[2020-06-21] MEDS ORDERED: PROCHLORPERAZINE 5 MG/ML, 2ML ONE (16:31)
[2020-06-21] MEDS ORDERED: LORazepam 2 MG/ML, 1ML ONE (16:32)
[2020-06-21] MEDS: PROCHLORPERAZINE 5 MG/ML, 2ML IV PRN (16:40)
[2020-06-21] MEDS: ENOXAPARIN 40 MG/0.4 ML SQ SCH (16:44)
--- NOTE | 2020-06-21 16:55 | NUR ---
PT SLEEPING NOT VOMITED X 1 HR
[2020-06-21] MEDS ORDERED: NEOSPORIN OINT. PKT 1 PACKET ONE (17:53)
--- NOTE | 2020-06-21 18:34 | NUR ---
PT STILL SLEEPING NO VOMIT LAST HOUR
--- NOTE | 2020-06-21 18:57 | NUR ---
ASSUMED CARE FROM FELIPE MORENO. [facility], WILL CONTINUE TO MONITOR.
[2020-06-21] MEDS ORDERED: NORTRIPTYLINE 25 MG CAPSULE PO SCH (21:00)
--- NOTE | 2020-06-21 22:29 | NUR ---
REPORT GIVEN TO FELIPE TRUJILLO.
--- NOTE | 2020-06-21 22:29 | NUR ---
report from nilsa mahoney. pt resting with no needs at this time. call light in reach
[2020-06-21] MEDS: DIPHENHYDRAMINE 50 MG/ML, 1ML IVPush PRN (23:54)
[2020-06-22] MEDS: PROMETHAZINE 25 MG/ML, 1ML IM PRN ×5 (04:54→15:32)
[2020-06-22 04:58] VITALS: BP 111/64
[2020-06-22 05:23] LABS: BASOPHILS % (AUTO) 1 % (0-1); EOSINOPHILS % (AUTO) 0 % (1-7); LYMPHOCYTES % (AUTO) 16 % (22-44); MEAN CORPUSCULAR HEMOGLOBIN 29.9 pg (27.0-34.8); MEAN CORPUSCULAR HGB CONC 33.2 g/dL (32.4-35.8); MEAN PLATELET VOLUME 8.1 fL (7.4-10.4); MONOCYTES % (AUTO) 5 % (2-9); NEUTROPHILS % (AUTO) 78 % (42-75); PLATELET COUNT 496 x10^3/uL (130-400); RED BLOOD COUNT 4.21 x10^6/uL (3.82-5.3); RED CELL DISTRIBUTION WIDTH 15.5 % (9.6-15.2)
[2020-06-22 05:30] LABS: ANION GAP 7 mmol/L (5-15); CALCIUM 8.7 mg/dL (8.5-10.1); CHLORIDE 112 mmol/L (98-107)
[2020-06-22 05:31] LABS: CREATININE 0.64 mg/dL (0.55-1.02)
[2020-06-22 05:40] LABS: MD NO
[2020-06-22] MEDS ORDERED: OMEPRAZOLE 20 MG CAPSULE.DR PO SCH (06:00)
[2020-06-22 07:15] VITALS: BP 132/81
[2020-06-22] MEDS: SODIUM CHLORIDE 0.9% 1,000 ML IV SCH (07:50)
[2020-06-22] MEDS: DIPHENHYDRAMINE 50 MG/ML, 1ML IVPush PRN (07:58)
[2020-06-22] MEDS ORDERED: CITALOPRAM 20 MG TABLET PO SCH (09:00)
[2020-06-22] MEDS: PROCHLORPERAZINE 5 MG/ML, 2ML IV PRN (12:42)
[2020-06-22 12:45] VITALS: BP 123/73
[2020-06-22] MEDS ORDERED: METO10TA82 PO (13:03)
[2020-06-22] MEDS: ENOXAPARIN 40 MG/0.4 ML SQ SCH (15:32)
== END 2020-06-22 16:22 | disposition home or self-care (01) ==
LOC: ED 11:42 → OBSVTOIN 14:12 → INTOOBSV 14:12 → EDIP 14:12 → 4NE 23:29 → DCLOUNGE 06-22 16:11
PROVIDERS: ADMIT Family Medicine; ATTEND Family Medicine
DX: R11.15 Cyclical vomiting syndrome unrelated to migraine (principal); E86.0 Dehydration; D72.829 Elevated white blood cell count, unspecified; G43.909 Migraine, unspecified, not intractable, without status migrainosus; F41.9 Anxiety disorder, unspecified; M41.9 Scoliosis, unspecified; F12.10 Cannabis abuse, uncomplicated; F17.210 Nicotine dependence, cigarettes, uncomplicated; Z79.899 Other long term (current) drug therapy
CPT/HCPCS: 36415; 74021; 80048; 80053; 81001; 81025; 83690; 85025; 87077; 87086; 87186; 96361; 96372; 96374; 96375; 96376; 99284; G0378; J0780; J1200; J1630; J1650; J2060; J2550; J7030

== ENCOUNTER 2020-08-05 10:09 | Observation (INO) | payer MEDICAID ==
[~2020-08-05] VITALS: Ht 167.6 cm; Wt 79.0 kg
[~2020-08-05 10:09] MED LIST changes: +METO10TA82 PO
[2020-08-05] MEDS ORDERED: SODIUM CHLORIDE 0.9% 1,000ML IVBOLUS ONE (10:30)
[2020-08-05] MEDS ORDERED: DIPHENHYDRAMINE 50 MG/ML, 1ML IVPush ONE (10:30)
[2020-08-05] MEDS ORDERED: HALOPERIDOL 5 MG/ML IV ONE (10:30)
[2020-08-05] MEDS ORDERED: DIPHENHYDRAMINE 50 MG/ML, 1ML ONE ×2 (10:34→10:45)
[2020-08-05] MEDS ORDERED: METOCLOPRAMIDE 5 MG/ML, 2ML ONE (10:45)
[2020-08-05] MEDS ORDERED: METOCLOPRAMIDE 5 MG/ML, 2ML IVPush ONE (11:00)
--- NOTE | 2020-08-05 11:05 | NUR ---
TASK RN: PT ACTIVELY VOMITING. MEDICATED FOR SAME NOTED ON MAR WITH IV BOLUS INFUSING
[2020-08-05 11:07] LABS: BASOPHILS % (AUTO) 1 % (0-1); EOSINOPHILS % (AUTO) 1 % (1-7); LYMPHOCYTES % (AUTO) 20 % (22-44); MEAN CORPUSCULAR HEMOGLOBIN 29.5 pg (27.0-34.8); MEAN CORPUSCULAR HGB CONC 33.2 g/dL (32.4-35.8); MEAN PLATELET VOLUME 8.2 fL (7.4-10.4); MONOCYTES % (AUTO) 5 % (2-9); NEUTROPHILS % (AUTO) 74 % (42-75); PLATELET COUNT 508 x10^3/uL (130-400); RED BLOOD COUNT 4.49 x10^6/uL (3.82-5.3); RED CELL DISTRIBUTION WIDTH 16.3 % (9.6-15.2)
[2020-08-05 11:10] LABS: MD NO
[2020-08-05 11:13] LABS: ALBUMIN 3.8 g/dL (3.4-5.0); ANION GAP 11 mmol/L (5-15); CALCIUM 9.6 mg/dL (8.5-10.1); CHLORIDE 111 mmol/L (98-107)
[2020-08-05 11:15] LABS: ALANINE AMINOTRANSFERASE 20 U/L (12-78); ALKALINE PHOSPHATASE 88 U/L (45-117); BILIRUBIN,TOTAL 0.4 mg/dL (0.2-1.0); CREATININE 0.87 mg/dL (0.55-1.02); TOTAL PROTEIN 7.6 g/dL (6.4-8.2)
[2020-08-05] MEDS ORDERED: ONDANSETRON 2MG/ML, 2ML ONE (11:21)
[2020-08-05] MEDS ORDERED: PROMETHAZINE 25 MG/ML, 1ML ONE (11:25)
[2020-08-05] MEDS ORDERED: DIPHENHYDRAMINE 50 MG/ML, 1ML IM ONE (11:30)
[2020-08-05] MEDS ORDERED: PROMETHAZINE 25 MG/ML, 1ML IM ONE (11:30)
--- NOTE | 2020-08-05 11:36 | NUR ---
MEDICATED PER ORDERS. PT NOT VOMITING AT THIS TIME. VSS.
--- NOTE | 2020-08-05 12:57 | NUR ---
PT AMBULATED TO BATHROOM, STILL VOMITING AND HEAVING
[2020-08-05] MEDS ORDERED: DIAZEPAM 5 MG/ML, 2ML IV ONE (13:00)
[2020-08-05] MEDS ORDERED: DIAZEPAM 5 MG/ML, 2ML ONE (13:05)
--- NOTE | 2020-08-05 13:10 | NUR ---
RECEIVED REPORT FROM FELIPE ROBLES. PT RESTING ON [facility]. MEDICATED PER SEP. VSS.
--- NOTE | 2020-08-05 14:18 | NUR ---
PT RESTING ON GURNEY. NADN. LAYTON.
[2020-08-05] MEDS ORDERED: NICOTINE 7 MG/24 HR PATCH.TD24 TD PRN (15:00)
[2020-08-05] MEDS ORDERED: ENALAPRILAT 1.25 MG/ML, 2ML IVPush PRN (15:00)
[2020-08-05] MEDS ORDERED: LORazepam 1MG TABLET PO PRN (15:00)
[2020-08-05] MEDS ORDERED: LABETALOL 5MG/ML, 20ML IVPush PRN (15:00)
[2020-08-05] MEDS: ENOXAPARIN 40 MG/0.4 ML SQ SCH (16:09)
[2020-08-05 18:47] VITALS: BP 142/80
[2020-08-05] MEDS: DIPHENHYDRAMINE 25 MG CAPSULE PO SCH ×2 (20:32→21:17)
[2020-08-05] MEDS ORDERED: NORTRIPTYLINE 25 MG CAPSULE PO SCH (21:00)
[2020-08-05] MEDS: ONDANSETRON 2MG/ML, 2ML IVPush PRN (21:16)
[2020-08-05] MEDS: POTASSIUM CHLORIDE 20 MEQ in LACTATED RINGERS 1,000 ML IV SCH (21:24)
[2020-08-06 00:15] VITALS: BP 120/75
[2020-08-06 01:39] LABS: MICROSCOPIC AUTO
[2020-08-06 04:37] LABS: BASOPHILS % (AUTO) 1 % (0-1); EOSINOPHILS % (AUTO) 0 % (1-7); LYMPHOCYTES % (AUTO) 20 % (22-44); MEAN CORPUSCULAR HEMOGLOBIN 29.7 pg (27.0-34.8); MEAN CORPUSCULAR HGB CONC 33.2 g/dL (32.4-35.8); MEAN PLATELET VOLUME 7.8 fL (7.4-10.4); MONOCYTES % (AUTO) 7 % (2-9); NEUTROPHILS % (AUTO) 71 % (42-75); PLATELET COUNT 435 x10^3/uL (130-400); RED BLOOD COUNT 3.86 x10^6/uL (3.82-5.3); RED CELL DISTRIBUTION WIDTH 16.5 % (9.6-15.2)
[2020-08-06 04:50] LABS: ANION GAP 9 mmol/L (5-15); CALCIUM 8.6 mg/dL (8.5-10.1); CHLORIDE 109 mmol/L (98-107)
[2020-08-06 04:52] LABS: CREATININE 0.61 mg/dL (0.55-1.02)
[2020-08-06 06:05] LABS: MD SCAN
[2020-08-06 07:12] VITALS: BP 94/56
[2020-08-06] MEDS ORDERED: PANTOPRAZOLE 40 MG IV IVPush SCH (07:30)
[2020-08-06] MEDS: DIPHENHYDRAMINE 25 MG CAPSULE PO SCH (08:10)
[2020-08-06] MEDS ORDERED: CITALOPRAM 20 MG TABLET PO ONE (09:00)
[2020-08-06] MEDS: POTASSIUM CHLORIDE 20 MEQ in LACTATED RINGERS 1,000 ML IV SCH (11:14)
[2020-08-06 12:13] VITALS: BP 102/44
[2020-08-06] MEDS: ONDANSETRON 2MG/ML, 2ML IVPush PRN (12:24)
[2020-08-06] MEDS: ENOXAPARIN 40 MG/0.4 ML SQ SCH (15:00)
== END 2020-08-06 15:44 | disposition home or self-care (01) ==
LOC: ED 12:11 → INTOOBSV 13:33 → EDIP 13:33 → 3N 14:31 → 4WST 17:57 → 3N 17:59 → 4WST 18:23 → UNDODISIN 08-06 15:44
PROVIDERS: ADMIT Family Medicine; ATTEND Family Medicine
DX: R11.2 Nausea with vomiting, unspecified (principal); E86.0 Dehydration; E87.6 Hypokalemia; F41.9 Anxiety disorder, unspecified; F17.210 Nicotine dependence, cigarettes, uncomplicated; F12.10 Cannabis abuse, uncomplicated; Z79.899 Other long term (current) drug therapy
CPT/HCPCS: 36415; 80048; 80053; 81001; 83690; 83735; 84703; 85025; 87086; 93005; 96361; 96365; 96366; 96372; 96375; 96376; 99284; C9113; G0378; J1200; J1630; J1650; J2405; J2550; J2765; J3360; J3480; J7030; J7120; Q0163; 99285

== ENCOUNTER 2020-09-19 08:50 | Emergency (ER) | payer MEDICAID ==
[~2020-09-19] VITALS: Ht 167.6 cm; Wt 79.4 kg
[~2020-09-19 08:50] MED LIST changes: -POLY17PO29 PO; +POLY17PO50 PO
[2020-09-19] MEDS ORDERED: METOCLOPRAMIDE 5 MG/ML, 2ML ONE (09:08)
[2020-09-19] MEDS ORDERED: PROMETHAZINE 25 MG/ML, 1ML ONE (09:17)
--- NOTE | 2020-09-19 09:25 | NUR ---
BP CUFF, PULSE OX IN PLACE. WARM BLANKET PROVIDED, CALL LIGHT WITHIN REACH. ATTEMPT FOR IV X 1, VEIN COLLAPSED/UNABLE TO DRAW LABS. PT REQUESTING PHENERGAN IM FIRST INSTEAD OF 2ND ATTEMPT FOR IV. THIS VERIFIED WITH ERP. PHENERGAN GIVEN PER ERP ORDER. LAB KASSIE SPECIMENS. URINE COLLECTED/SENT TO LAB.
[2020-09-19] MEDS ORDERED: METOCLOPRAMIDE 5 MG/ML, 2ML IVPush ONE (09:30)
[2020-09-19] MEDS ORDERED: PROMETHAZINE 25 MG/ML, 1ML IM ONE (09:30)
[2020-09-19] MEDS ORDERED: SODIUM CHLORIDE 0.9% 1,000ML IVBOLUS ONE (09:30)
[2020-09-19 09:33] LABS: MICROSCOPIC INDICATED
[2020-09-19] MEDS ORDERED: ONDA4TAB7 PO (09:34)
[2020-09-19] MEDS ORDERED: PROM25SU35 PR (09:34)
[2020-09-19 09:36] LABS: ALANINE AMINOTRANSFERASE 22 U/L (12-78); ALBUMIN 3.6 g/dL (3.4-5.0); ANION GAP 8 mmol/L (5-15); CALCIUM 8.7 mg/dL (8.5-10.1); CHLORIDE 110 mmol/L (98-107); CREATININE 0.75 mg/dL (0.55-1.02)
[2020-09-19 09:41] LABS: ALKALINE PHOSPHATASE 81 U/L (45-117); BILIRUBIN,TOTAL 0.6 mg/dL (0.2-1.0); TOTAL PROTEIN 7.7 g/dL (6.4-8.2)
[2020-09-19 09:50] LABS: BASOPHILS % (AUTO) 1 % (0-1); EOSINOPHILS % (AUTO) 4 % (1-7); LYMPHOCYTES % (AUTO) 27 % (22-44); MEAN CORPUSCULAR HEMOGLOBIN 29.2 pg (27.0-34.8); MEAN CORPUSCULAR HGB CONC 33.4 g/dL (32.4-35.8); MEAN PLATELET VOLUME 8.3 fL (7.4-10.4); MONOCYTES % (AUTO) 8 % (2-9); NEUTROPHILS % (AUTO) 61 % (42-75); PLATELET COUNT 481 x10^3/uL (130-400); RED BLOOD COUNT 4.33 x10^6/uL (3.82-5.3); RED CELL DISTRIBUTION WIDTH 17.9 % (9.6-15.2)
[2020-09-19 09:51] LABS: MD NO
--- NOTE | 2020-09-19 10:09 | NUR ---
PT STATES NAUSEA DECREASED. CHICKEN BROTH PROVIDED FOR PO CHALLENGE. VSS/UPDATED IN CHART.
[2020-09-19 10:12] VITALS: BP 115/70
--- NOTE | 2020-09-19 10:43 | NUR ---
NO VOMITING DURING ED STAY, NAUSEA DECREASED. PT DISCHARGED HOME WITH .
== END 2020-09-19 10:43 | disposition home or self-care (01) ==
LOC: ED 09:07
DX: N30.00 Acute cystitis without hematuria (principal); R11.2 Nausea with vomiting, unspecified; E87.6 Hypokalemia
CPT/HCPCS: 36415; 80053; 81001; 83690; 84703; 85025; 87086; 96372; 99283; J2550

== ENCOUNTER 2020-09-20 08:32 | Inpatient (IN) | payer MEDICAID ==
[~2020-09-20] VITALS: Ht 167.6 cm; Wt 79.4 kg
[~2020-09-20 08:32] MED LIST changes: +ONDA4TAB7 PO; +PROM25SU35 PR
[2020-09-20] MEDS ORDERED: PROMETHAZINE 25 MG/ML, 1ML ONE (09:02)
[2020-09-20] MEDS ORDERED: ONDANSETRON 2MG/ML, 2ML ONE (09:02)
[2020-09-20 09:13] LABS: BASOPHILS % (AUTO) 1 % (0-1); EOSINOPHILS % (AUTO) 2 % (1-7); LYMPHOCYTES % (AUTO) 16 % (22-44); MEAN CORPUSCULAR HGB CONC 33.6 g/dL (32.4-35.8); MEAN PLATELET VOLUME 8.2 fL (7.4-10.4); MONOCYTES % (AUTO) 6 % (2-9); NEUTROPHILS % (AUTO) 75 % (42-75); PLATELET COUNT 518 x10^3/uL (130-400); RED BLOOD COUNT 4.79 x10^6/uL (3.82-5.3); RED CELL DISTRIBUTION WIDTH 17.4 % (9.6-15.2)
--- NOTE | 2020-09-20 09:15 | NUR ---
Pt is a 30F with complaints of nausea and comiting since 0600 this morning. She was seen here yesterday also for the same. She is vomiting every couple of minutes in the room. abd pain and cramping with the vomiting.warm blankets provided. Provider has been to bedside for eval and poc. cardiac, bp, and sp02 monitors in place. call light within reach.
[2020-09-20] MEDS: SODIUM CHLORIDE 0.9% 1,000 ML IV ONE ×2 (09:20→09:30)
[2020-09-20] MEDS ORDERED: ONDANSETRON 2MG/ML, 2ML IVPush ONE (09:30)
[2020-09-20] MEDS ORDERED: HALOPERIDOL 5 MG/ML IV ONE (09:30)
[2020-09-20] MEDS ORDERED: SODIUM CHLORIDE 0.9% 1,000ML IVBOLUS ONE (09:30)
[2020-09-20] MEDS ORDERED: PROMETHAZINE 25 MG/ML, 1ML IM ONE (09:30)
[2020-09-20] MEDS ORDERED: HALOPERIDOL 5 MG/ML ONE (09:33)
[2020-09-20 09:34] LABS: MD SCAN
--- NOTE | 2020-09-20 09:54 | NUR ---
advised pt we need a urine sample. she will call when she feels she can give us a sample.
[2020-09-20 09:59] LABS: ALBUMIN 3.8 g/dL (3.4-5.0); ANION GAP 10 mmol/L (5-15); CHLORIDE 113 mmol/L (98-107); CREATININE 0.86 mg/dL (0.55-1.02)
[2020-09-20] MEDS ORDERED: SODIUM CHLORIDE FLUSH 10ML SYR IVF ONE (10:00)
[2020-09-20 10:02] LABS: ALANINE AMINOTRANSFERASE 27 U/L (12-78); ALKALINE PHOSPHATASE 96 U/L (45-117); BILIRUBIN,TOTAL 0.3 mg/dL (0.2-1.0); TOTAL PROTEIN 8.1 g/dL (6.4-8.2)
[2020-09-20] MEDS ORDERED: MORPHINE SULFATE 4 MG/ML, 1ML IVPush PRN (10:30)
[2020-09-20] MEDS ORDERED: DIPHENHYDRAMINE 50 MG/ML, 1ML ONE (10:34)
[2020-09-20] MEDS: LACTATED RINGERS 1,000 ML IV SCH ×3 (10:37→11:30)
[2020-09-20 10:54] LABS: MICROSCOPIC AUTO
[2020-09-20] MEDS ORDERED: DIPHENHYDRAMINE 50 MG/ML, 1ML IVPush ONE (11:00)
[2020-09-20] MEDS ORDERED: LACTATED RINGERS 1,000 ML IV SCH (11:30)
[2020-09-20] MEDS ORDERED: POLYETHYLENE GLYCOL 17 GM PACKET PO PRN (11:30)
[2020-09-20] MEDS ORDERED: KETOROLAC 30 MG/1 ML IV PRN (11:30)
[2020-09-20] MEDS ORDERED: ACETAMINOPHEN 325 MG TABLET PO PRN (11:30)
[2020-09-20] MEDS: HEPARIN 5,000 UNITS/ML, 1ML SQ SCH ×2 (11:30→21:24)
[2020-09-20] MEDS ORDERED: DIPHENHYDRAMINE 25 MG CAPSULE PO PRN (12:00)
[2020-09-20] MEDS ORDERED: POTASSIUM CHLORIDE 40 MEQ in LACTATED RINGERS 1,000 ML IV SCH (12:00)
[2020-09-20] MEDS ORDERED: SODIUM CHLORIDE FLUSH 10ML SYR IVF PRN (12:00)
--- NOTE | 2020-09-20 12:01 | NUR ---
report to fabrizio WANG
[2020-09-20] MEDS ORDERED: SUMATRIPTAN 6MG/0.5ML SQ ONE ×2 (12:30→15:00)
[2020-09-20] MEDS ORDERED: POTASSIUM CHLORIDE 40 MEQ in SODIUM CHLORIDE 0.9% 500 ML IV ONE (12:30)
[2020-09-20 13:09] VITALS: BP 128/84
[2020-09-20] MEDS: METOCLOPRAMIDE 5 MG/ML, 2ML IVPush PRN ×2 (13:30→22:55)
[2020-09-20 14:25] LABS: HCG UR SG 1.019 (1.003-1.030)
[2020-09-20] MEDS: PROMETHAZINE 25 MG/ML, 1ML IM PRN (16:08)
[2020-09-20] MEDS: ONDANSETRON 2MG/ML, 2ML IVPush PRN (18:12)
[2020-09-20 20:11] VITALS: BP 126/74
[2020-09-20] MEDS: BUSPIRONE 5 MG TABLET PO SCH (21:00)
[2020-09-20] MEDS ORDERED: NORTRIPTYLINE 25 MG CAPSULE PO SCH (21:00)
[2020-09-20] MEDS: DIPHENHYDRAMINE 50 MG/ML, 1ML IVPush PRN (21:23)
[2020-09-20] MEDS: POTASSIUM CHLORIDE 40 MEQ in LACTATED RINGERS 1,000 ML IV SCH (21:23)
[2020-09-21 01:38] VITALS: BP 139/83
[2020-09-21] MEDS: ONDANSETRON 2MG/ML, 2ML IVPush PRN ×3 (02:50→18:29)
[2020-09-21] MEDS: PROMETHAZINE 25 MG/ML, 1ML IM PRN ×3 (04:01→23:05)
[2020-09-21] MEDS: POTASSIUM CHLORIDE 40 MEQ in LACTATED RINGERS 1,000 ML IV SCH ×3 (04:32→20:27)
[2020-09-21] MEDS: DIPHENHYDRAMINE 50 MG/ML, 1ML IVPush PRN ×3 (04:33→22:48)
[2020-09-21] MEDS: HEPARIN 5,000 UNITS/ML, 1ML SQ SCH ×3 (05:27→22:49)
[2020-09-21] MEDS: METOCLOPRAMIDE 5 MG/ML, 2ML IVPush PRN ×3 (05:33→19:56)
[2020-09-21 05:36] LABS: BASOPHILS % (AUTO) 1 % (0-1); EOSINOPHILS % (AUTO) 0 % (1-7); LYMPHOCYTES % (AUTO) 14 % (22-44); MEAN CORPUSCULAR HEMOGLOBIN 28.9 pg (27.0-34.8); MEAN CORPUSCULAR HGB CONC 33.5 g/dL (32.4-35.8); MEAN PLATELET VOLUME 7.9 fL (7.4-10.4); MONOCYTES % (AUTO) 7 % (2-9); NEUTROPHILS % (AUTO) 78 % (42-75); PLATELET COUNT 486 x10^3/uL (130-400); RED BLOOD COUNT 4.34 x10^6/uL (3.82-5.3)
[2020-09-21 05:46] LABS: MD NO
[2020-09-21 05:54] LABS: CHLORIDE 107 mmol/L (98-107)
[2020-09-21 06:01] LABS: ANION GAP 5 mmol/L (5-15); CALCIUM 9.3 mg/dL (8.5-10.1); CREATININE 0.63 mg/dL (0.55-1.02)
[2020-09-21 08:25] VITALS: BP 106/69
[2020-09-21] MEDS: CITALOPRAM 20 MG TABLET PO SCH (09:00)
[2020-09-21] MEDS: OMEPRAZOLE 20 MG CAPSULE.DR PO SCH (09:00)
[2020-09-21] MEDS ORDERED: CITALOPRAM 20 MG TABLET PO SCH (09:00)
[2020-09-21] MEDS: BUSPIRONE 5 MG TABLET PO SCH ×2 (09:00→20:27)
[2020-09-21 13:24] VITALS: BP 111/73
[2020-09-21 15:45] LABS: CLOSTRIDIUM DIFFICILE ANTIGEN NEGATIVE; CLOSTRIDIUM DIFFICILE TOXIN NEGATIVE (Negative)
[2020-09-21 19:50] VITALS: BP 143/87
[2020-09-21] MEDS: NICOTINE 14MG/24 HR PATCH.TD24 TD SCH (19:55)
[2020-09-21] MEDS: PROPRANOLOL 40 MG TABLET PO SCH (20:27)
[2020-09-22] MEDS: POTASSIUM CHLORIDE 40 MEQ in LACTATED RINGERS 1,000 ML IV SCH ×3 (03:08→21:30)
[2020-09-22] MEDS: METOCLOPRAMIDE 5 MG/ML, 2ML IVPush PRN (03:09)
[2020-09-22 03:10] VITALS: BP 148/89
[2020-09-22] MEDS ORDERED: HALOPERIDOL 5 MG/ML IV ONE ×2 (04:00→12:30)
[2020-09-22 06:03] LABS: ANION GAP 7 mmol/L (5-15); CALCIUM 9.4 mg/dL (8.5-10.1); CHLORIDE 106 mmol/L (98-107)
[2020-09-22 06:04] LABS: BASOPHILS % (AUTO) 1 % (0-1); EOSINOPHILS % (AUTO) 1 % (1-7); LYMPHOCYTES % (AUTO) 18 % (22-44); MEAN CORPUSCULAR HEMOGLOBIN 29.1 pg (27.0-34.8); MEAN CORPUSCULAR HGB CONC 33.3 g/dL (32.4-35.8); MEAN PLATELET VOLUME 7.9 fL (7.4-10.4); MONOCYTES % (AUTO) 8 % (2-9); NEUTROPHILS % (AUTO) 72 % (42-75); PLATELET COUNT 487 x10^3/uL (130-400); RED BLOOD COUNT 4.36 x10^6/uL (3.82-5.3); RED CELL DISTRIBUTION WIDTH 17.7 % (9.6-15.2)
[2020-09-22 06:06] LABS: CREATININE 0.64 mg/dL (0.55-1.02)
[2020-09-22 06:18] LABS: MD NO
[2020-09-22] MEDS: HEPARIN 5,000 UNITS/ML, 1ML SQ SCH ×3 (06:38→23:46)
[2020-09-22 07:58] VITALS: BP 114/69
[2020-09-22] MEDS: PROPRANOLOL 40 MG TABLET PO SCH ×2 (08:00→18:07)
[2020-09-22] MEDS: OMEPRAZOLE 20 MG CAPSULE.DR PO SCH (09:00)
[2020-09-22] MEDS: CITALOPRAM 20 MG TABLET PO SCH (09:00)
[2020-09-22] MEDS: BUSPIRONE 5 MG TABLET PO SCH ×2 (09:00→21:30)
[2020-09-22] MEDS: NICOTINE 14MG/24 HR PATCH.TD24 TD SCH (09:00)
[2020-09-22] MEDS: PROMETHAZINE 25 MG/ML, 1ML IM PRN ×2 (09:42→18:32)
[2020-09-22 15:15] VITALS: BP 111/70
[2020-09-22] MEDS: DIPHENHYDRAMINE 50 MG/ML, 1ML IVPush PRN (19:45)
[2020-09-22 19:59] VITALS: BP 140/82
[2020-09-23] MEDS: HALOPERIDOL 5 MG/ML IM PRN ×2 (00:05→08:46)
[2020-09-23 00:41] VITALS: BP 128/88
[2020-09-23] MEDS: DIPHENHYDRAMINE 50 MG/ML, 1ML IVPush PRN (04:13)
[2020-09-23 05:15] LABS: ANION GAP 8 mmol/L (5-15); CALCIUM 8.6 mg/dL (8.5-10.1); CHLORIDE 106 mmol/L (98-107)
[2020-09-23] MEDS: PROPRANOLOL 40 MG TABLET PO SCH (05:18)
[2020-09-23] MEDS: CITALOPRAM 20 MG TABLET PO SCH (08:27)
[2020-09-23] MEDS: NICOTINE 14MG/24 HR PATCH.TD24 TD SCH (08:28)
[2020-09-23] MEDS: HEPARIN 5,000 UNITS/ML, 1ML SQ SCH (08:45)
[2020-09-23] MEDS: BUSPIRONE 5 MG TABLET PO SCH (08:47)
[2020-09-23] MEDS: OMEPRAZOLE 20 MG CAPSULE.DR PO SCH (08:47)
[2020-09-23 10:00] VITALS: BP 108/75
[2020-09-23] MEDS ORDERED: CITA20TA9 PO (11:13)
[2020-09-23] MEDS ORDERED: HALO5TAB5 PO (11:13)
[2020-09-23] MEDS ORDERED: BUSP5TAB2 PO (11:13)
[2020-09-23] MEDS: POTASSIUM CHLORIDE 40 MEQ in LACTATED RINGERS 1,000 ML IV SCH (11:38)
[2020-09-23 12:27] VITALS: BP 101/71
== END 2020-09-23 13:06 | disposition home or self-care (01) | DRG 641 ==
LOC: ED 09:23 → 4EST 10:51 → INTOOBSV 10:51 → OBSVTOIN 09-21 12:46 → DCLOUNGE 09-23 12:54
PROVIDERS: ADMIT Family Medicine; ATTEND Family Medicine
DX: E86.0 Dehydration (principal); F19.20 Other psychoactive substance dependence, uncomplicated; E87.2 Acidosis; E87.6 Hypokalemia; F12.11 Cannabis abuse, in remission; F17.200 Nicotine dependence, unspecified, uncomplicated; F41.8 Other specified anxiety disorders; Z82.49 Family history of ischemic heart disease and other diseases of the circulatory system; Z82.62 Family history of osteoporosis; Z83.49 Family history of other endocrine, nutritional and metabolic diseases; D72.829 Elevated white blood cell count, unspecified
CPT/HCPCS: 36415; 80048; 80053; 81001; 81025; 82962; 83690; 83735; 85025; 87086; 87324; 93005; 96361; 96372; 96374; 96375; G0378; J1644; J2405; J2550; J3480; J1200; J1630; J2765; J3030; J7030; J7120

== ENCOUNTER 2020-10-27 18:30 | Emergency (ER) | payer MEDICAID ==
[~2020-10-27] VITALS: Ht 167.6 cm; Wt 80.2 kg
[~2020-10-27 18:30] MED LIST changes: +BUSP5TAB2 PO; +HALO5TAB5 PO
--- NOTE | 2020-10-27 19:36 | NUR ---
pt resting comfortably in gurney, warm blanket given. pr pt she tooh phenergan suppositiory, oral regal and zofran about 3-4 hours ago with no relief. pt has history of cyclic vomiting. piv placed, labs drawn, awaiting erp orders/eval
[2020-10-27] MEDS ORDERED: DIPHENHYDRAMINE 50 MG/ML, 1ML ONE (19:56)
[2020-10-27] MEDS ORDERED: HALOPERIDOL 5 MG/ML ONE (19:56)
[2020-10-27 19:58] LABS: BASOPHILS % (AUTO) 0 % (0-1); EOSINOPHILS % (AUTO) 0 % (1-7); LYMPHOCYTES % (AUTO) 9 % (22-44); MEAN CORPUSCULAR HEMOGLOBIN 28.8 pg (27.0-34.8); MEAN PLATELET VOLUME 8.7 fL (7.4-10.4); MONOCYTES % (AUTO) 3 % (2-9); NEUTROPHILS % (AUTO) 88 % (42-75); PLATELET COUNT 544 x10^3/uL (130-400)
[2020-10-27] MEDS ORDERED: HALOPERIDOL 5 MG/ML IM PRN (20:00)
[2020-10-27] MEDS ORDERED: SODIUM CHLORIDE 0.9% 1,000ML IVBOLUS ONE (20:00)
[2020-10-27] MEDS ORDERED: HALOPERIDOL 5 MG/ML IV ONE (20:00)
[2020-10-27] MEDS ORDERED: SODIUM CHLORIDE FLUSH 10ML SYR IVF ONE (20:00)
[2020-10-27] MEDS ORDERED: DIPHENHYDRAMINE 50 MG/ML, 1ML IVPush ONE (20:00)
[2020-10-27 20:08] LABS: ALBUMIN 4.1 g/dL (3.4-5.0); ANION GAP 11 mmol/L (5-15); CALCIUM 9.7 mg/dL (8.5-10.1); CHLORIDE 107 mmol/L (98-107)
[2020-10-27 20:14] LABS: ALANINE AMINOTRANSFERASE 20 U/L (12-78); ALKALINE PHOSPHATASE 93 U/L (45-117); BILIRUBIN,TOTAL 0.3 mg/dL (0.2-1.0); CREATININE 0.81 mg/dL (0.55-1.02); TOTAL PROTEIN 8.4 g/dL (6.4-8.2)
[2020-10-27 20:53] LABS: MD SCAN
[2020-10-27] MEDS ORDERED: METOCLOPRAMIDE 5 MG/ML, 2ML ONE (21:13)
[2020-10-27 21:19] VITALS: BP 148/76
[2020-10-27] MEDS ORDERED: METOCLOPRAMIDE 5 MG/ML, 2ML IVPush ONE (21:30)
== END 2020-10-27 21:47 | disposition home or self-care (01) ==
LOC: ED 20:39
DX: R10.84 Generalized abdominal pain (principal); R11.2 Nausea with vomiting, unspecified; G43.909 Migraine, unspecified, not intractable, without status migrainosus
CPT/HCPCS: 36415; 80053; 83690; 84703; 85025; 96361; 96372; 96374; 96375; 99284; J1200; J1630; J2765; J7030

== ENCOUNTER 2020-11-12 10:08 | Emergency (ER) | payer MEDICAID ==
[~2020-11-12] VITALS: Ht 167.6 cm; Wt 81.1 kg
--- NOTE | 2020-11-12 10:31 | NUR ---
PT CAME IN CO LOW BACK PAIN. STARTED YESTERDAY. DENIES TRAUMA OR STRAINING
[2020-11-12] MEDS ORDERED: KETOROLAC 30 MG/1 ML ONE (10:50)
[2020-11-12] MEDS ORDERED: DIAZEPAM 5 MG TABLET ONE (10:50)
[2020-11-12] MEDS ORDERED: DIAZEPAM 5 MG TABLET PO ONE (11:00)
[2020-11-12] MEDS ORDERED: KETOROLAC 30 MG/1 ML IM ONE (11:00)
--- NOTE | 2020-11-12 11:08 | NUR ---
PATIENT TO IMAGING.
[2020-11-12 12:04] VITALS: BP 93/57
--- NOTE | 2020-11-12 12:07 | NUR ---
ERPA AT BEDSIDE TO DISCUSS POC AND DISCHARGE DISPO.
--- NOTE | 2020-11-12 12:20 | NUR ---
Patient given discharge instructions and prescriptions and they have confirmed that they understand the instructions. Patient stable and ambulatory with steady gait from ED.
== END 2020-11-12 12:21 | disposition home or self-care (01) ==
LOC: ED 11:28
DX: S39.012A Strain of muscle, fascia and tendon of lower back, initial encounter (principal); M51.36 Other intervertebral disc degeneration, lumbar region; X58.XXXA Exposure to other specified factors, initial encounter; Y93.89 Activity, other specified; Y92.89 Other specified places as the place of occurrence of the external cause; Y99.8 Other external cause status
CPT/HCPCS: 72110; 96372; 99283; J1885

== ENCOUNTER 2020-11-14 05:39 | Emergency (ER) | payer MEDICAID ==
[~2020-11-14] VITALS: Ht 167.6 cm; Wt 80.0 kg
--- NOTE | 2020-11-14 05:50 | NUR ---
ASSESSMENT MADE. ERP AT BEDSIDE.
[2020-11-14] MEDS ORDERED: HALOPERIDOL 5 MG/ML ONE (06:17)
[2020-11-14 06:21] LABS: BASOPHILS % (AUTO) 1 % (0-1); EOSINOPHILS % (AUTO) 0 % (1-7); LYMPHOCYTES % (AUTO) 18 % (22-44); MEAN CORPUSCULAR HEMOGLOBIN 28.9 pg (27.0-34.8); MEAN CORPUSCULAR HGB CONC 33.5 g/dL (32.4-35.8); MEAN PLATELET VOLUME 8.1 fL (7.4-10.4); MONOCYTES % (AUTO) 8 % (2-9); NEUTROPHILS % (AUTO) 73 % (42-75); PLATELET COUNT 559 x10^3/uL (130-400); RED BLOOD COUNT 4.63 x10^6/uL (3.82-5.3); RED CELL DISTRIBUTION WIDTH 17.3 % (9.6-15.2)
[2020-11-14 06:23] LABS: MD NO
--- NOTE | 2020-11-14 06:23 | NUR ---
IV PLACED. BLOOD DRAWN AND SENT TO LAB. MEDICATED. IVF HUNG.
[2020-11-14] MEDS ORDERED: HALOPERIDOL 5 MG/ML IV ONE (06:30)
[2020-11-14] MEDS ORDERED: DIPHENHYDRAMINE 50 MG/ML, 1ML IVPush ONE (06:30)
[2020-11-14] MEDS ORDERED: SODIUM CHLORIDE FLUSH 10ML SYR IVF ONE (06:30)
[2020-11-14] MEDS ORDERED: SODIUM CHLORIDE 0.9% 1,000ML IVBOLUS ONE ×2 (06:30→07:00)
[2020-11-14 06:32] LABS: ALANINE AMINOTRANSFERASE 19 U/L (12-78); ANION GAP 11 mmol/L (5-15); CALCIUM 9.7 mg/dL (8.5-10.1); CHLORIDE 103 mmol/L (98-107); CREATININE 0.97 mg/dL (0.55-1.02)
[2020-11-14] MEDS ORDERED: DIPHENHYDRAMINE 50 MG/ML, 1ML ONE (06:32)
[2020-11-14 06:34] LABS: ALKALINE PHOSPHATASE 94 U/L (45-117); BILIRUBIN,TOTAL 0.6 mg/dL (0.2-1.0); TOTAL PROTEIN 8.3 g/dL (6.4-8.2)
--- NOTE | 2020-11-14 06:36 | NUR ---
PATIENT STILL VOMITING, RE-MEDICATED.
--- NOTE | 2020-11-14 06:47 | NUR ---
REPORT RECEIVED FROM PEDRITO WANG
--- NOTE | 2020-11-14 06:47 | NUR ---
report to maru keys
[2020-11-14] MEDS ORDERED: NS + 40MEQ KCL 1,000 ML IV SCH (07:00)
--- NOTE | 2020-11-14 07:05 | NUR ---
hold 2nd bolus per ermd order, ns+K instead.
--- NOTE | 2020-11-14 07:10 | NUR ---
PT RESTING IN BED, RESPS EVEN & UNLABORED, MONITORS ATTACHED, NADN. REQUEST FOR NS + K SENT TO PHARMACY.
[2020-11-14] MEDS ORDERED: NS + 40MEQ KCL 1,000 ML IV ONE (08:14)
--- NOTE | 2020-11-14 08:57 | NUR ---
PT RESTING IN BED, NO VOMITTING, NADN, FLUIDS INFUSING, CALL LIGHT IN REACH.
--- NOTE | 2020-11-14 09:46 | NUR ---
FLUIDS INFUSING, VSS, ALL MONITORS ATTACHED, NSR.
[2020-11-14] MEDS ORDERED: PROMETHAZINE 25 MG/ML, 1ML ONE (10:12)
--- NOTE | 2020-11-14 10:19 | NUR ---
PT MEDICATED PER ORDER, TOLERATED WELL. ALL MONITORS ATTACHED, NSR, VSS, NADN.
[2020-11-14] MEDS ORDERED: PROMETHAZINE 25 MG/ML, 1ML IM ONE (10:30)
[2020-11-14 11:01] VITALS: BP 101/53
--- NOTE | 2020-11-14 12:17 | NUR ---
waiting to complete k infusion, then dc
--- NOTE | 2020-11-14 12:35 | NUR ---
discharge instructions reviewed, pt verbalized understanding. ambulatory to discharge desk with steady gait
== END 2020-11-14 12:37 | disposition home or self-care (01) ==
LOC: ED 07:26
DX: R11.2 Nausea with vomiting, unspecified (principal); E86.0 Dehydration; E87.6 Hypokalemia; R00.0 Tachycardia, unspecified; F17.200 Nicotine dependence, unspecified, uncomplicated
CPT/HCPCS: 36415; 80053; 83690; 85025; 96361; 96365; 96366; 96372; 96375; 99285; J1200; J1630; J2550; J3480; J7030

== ENCOUNTER 2021-01-18 02:54 | Emergency (ER) | payer MEDICAID ==
[~2021-01-18] VITALS: Ht 167.6 cm; Wt 83.9 kg
[2021-01-18] MEDS ORDERED: PROMETHAZINE 25 MG/ML, 1ML ONE (03:18)
--- NOTE | 2021-01-18 03:20 | NUR ---
PT PRESENTS TO ER FOR N/V SINCE 1799 ON 01-17, PT STATES SHE HAS BEEN VOMITTING CLEAR LIQUID, ACID AND BILE
[2021-01-18] MEDS ORDERED: SODIUM CHLORIDE FLUSH 10ML SYR IVF ONE (03:30)
[2021-01-18] MEDS ORDERED: PROMETHAZINE 25 MG/ML, 1ML IM ONE (03:30)
[2021-01-18] MEDS ORDERED: MORPHINE SULFATE 4 MG/ML, 1ML IVPush PRN (03:30)
[2021-01-18] MEDS ORDERED: HALOPERIDOL 5 MG/ML IV ONE (03:30)
[2021-01-18] MEDS ORDERED: SODIUM CHLORIDE 0.9% 1,000ML IVBOLUS ONE (03:30)
[2021-01-18] MEDS ORDERED: FAMOTIDINE 20 MG/2 ML IVPush ONE (03:30)
[2021-01-18] MEDS ORDERED: ONDANSETRON 2MG/ML, 2ML IVPush ONE (03:30)
[2021-01-18 03:42] LABS: BASOPHILS % (AUTO) 0 % (0-1); EOSINOPHILS % (AUTO) 0 % (1-7); LYMPHOCYTES % (AUTO) 10 % (22-44); MEAN CORPUSCULAR HEMOGLOBIN 30.3 pg (27.0-34.8); MEAN CORPUSCULAR HGB CONC 34.3 g/dL (32.4-35.8); MEAN PLATELET VOLUME 8.3 fL (7.4-10.4); MONOCYTES % (AUTO) 4 % (2-9); NEUTROPHILS % (AUTO) 86 % (42-75); PLATELET COUNT 490 x10^3/uL (130-400); RED BLOOD COUNT 4.79 x10^6/uL (3.82-5.3); RED CELL DISTRIBUTION WIDTH 17.6 % (9.6-15.2)
[2021-01-18 03:52] LABS: ALANINE AMINOTRANSFERASE 25 U/L (12-78); ALBUMIN 3.9 g/dL (3.4-5.0); ANION GAP 10 mmol/L (5-15); CALCIUM 9.4 mg/dL (8.5-10.1); CHLORIDE 102 mmol/L (98-107); CREATININE 0.86 mg/dL (0.55-1.02)
[2021-01-18] MEDS ORDERED: ONDANSETRON 2MG/ML, 2ML ONE (03:52)
[2021-01-18] MEDS ORDERED: MORPHINE SULFATE 4 MG/ML, 1ML ONE (03:52)
[2021-01-18] MEDS ORDERED: FAMOTIDINE 20 MG/2 ML ONE (03:52)
[2021-01-18 03:56] LABS: ALKALINE PHOSPHATASE 112 U/L (45-117); BILIRUBIN,TOTAL 0.5 mg/dL (0.2-1.0); TOTAL PROTEIN 8.6 g/dL (6.4-8.2)
--- NOTE | 2021-01-18 04:08 | NUR ---
PT WAS VOMITTING EVERY 5-10 MINUTES, THIS RN ADMINISTERED IV MEDICATIONS PER MD ORDERS AND NOW PT NO LONGER VOMITTING, PT ASLEEP IN BED VSS, ALL NEEDS IN REACH, CALL LIT IN REACH
--- NOTE | 2021-01-18 05:24 | NUR ---
PT ASLEEP IN BED, ALL NEEDS IN REACH, CALL LIGHT IN REACH, NAD, VSS
[2021-01-18] MEDS ORDERED: HALOPERIDOL 5 MG/ML ONE (05:54)
--- NOTE | 2021-01-18 06:00 | NUR ---
PT REFUSING TO LEAVE AFTER INITIALLY AGREEING TO POC BY DOCTOR JI, PT GIVEN IM SHOT OF HALDOL, PT ADAMANT SHE NEEDS TO BE ADMITED, PT STATING THAT [facility] WILL INTERVENE AND COME AND ADMIT HER, THIS RN INFORMED PT THAT [facility] DOES NOT AFFILIATE WITH [facility] ANYMORE, PT REFUSING TO LEAVE STILL, THIS RN INFORMED PT THAT IF SHE WANTS TO GET EVALUATED BY CURRENT ER DOCTOR THEN SHE WOULD HAVE TO CHECK BACK IN
[2021-01-18 06:42] VITALS: BP 120/84
--- NOTE | 2021-01-18 06:43 | NUR ---
PT DISCHARGED, PT STATED SHE WANTED TO CHECK BACK IN TO BE EVALUATED BY A DIFFERENT DOCTOR, PT WAS NAD AT THE TIME THIS RN DISCHARGED PT, PT NOT VOMITING, VSS
== END 2021-01-18 06:45 | disposition home or self-care (01) ==
LOC: ED 03:13
DX: R11.2 Nausea with vomiting, unspecified (principal); E86.0 Dehydration; R10.84 Generalized abdominal pain; E86.9 Volume depletion, unspecified; R94.31 Abnormal electrocardiogram [ECG] [EKG]; G43.909 Migraine, unspecified, not intractable, without status migrainosus; F17.200 Nicotine dependence, unspecified, uncomplicated
CPT/HCPCS: 36415; 80053; 83690; 84703; 85025; 93005; 96361; 96372; 96374; 96375; 99284; J1630; J2270; J2405; J2550; J7030

== ENCOUNTER 2021-01-18 06:46 | Emergency (ER) | payer MEDICAID ==
[~2021-01-18] VITALS: Ht 167.6 cm; Wt 86.0 kg
[2021-01-18] MEDS ORDERED: DIPHENHYDRAMINE 50 MG/ML, 1ML ONE (07:17)
[2021-01-18] MEDS ORDERED: METOCLOPRAMIDE 5 MG/ML, 2ML ONE (07:17)
[2021-01-18] MEDS ORDERED: DROPERIDOL 2.5MG/ML, 2ML IVPush ONE (07:30)
[2021-01-18] MEDS ORDERED: METOCLOPRAMIDE 5 MG/ML, 2ML IVPush ONE (07:30)
[2021-01-18] MEDS ORDERED: DIPHENHYDRAMINE 50 MG/ML, 1ML IVPush ONE (07:30)
[2021-01-18] MEDS ORDERED: SODIUM CHLORIDE 0.9% 1,000ML IVBOLUS ONE (07:30)
--- NOTE | 2021-01-18 07:39 | NUR ---
PT IS SLEEPING AND SNORING. NO ACTIVE VOMITING AT THIS TIME.
[2021-01-18 08:44] LABS: MICROSCOPIC AUTO
--- NOTE | 2021-01-18 09:00 | NUR ---
PT HAS NO N/V. FEELING BETTER
--- NOTE | 2021-01-18 09:30 | NUR ---
Patient given discharge instructions and they have confirmed that they understand the instructions. Patient ambulatory with steady gait.
[2021-01-18 09:32] VITALS: BP 135/82
== END 2021-01-18 09:35 | disposition home or self-care (01) ==
LOC: ED 07:43
DX: R11.2 Nausea with vomiting, unspecified (principal); R10.84 Generalized abdominal pain; R94.31 Abnormal electrocardiogram [ECG] [EKG]; G43.909 Migraine, unspecified, not intractable, without status migrainosus; E86.0 Dehydration
CPT/HCPCS: 81001; 87086; 93005; 96374; 99284; J2765; J7030

== ENCOUNTER 2021-02-10 02:12 | Observation (INO) | payer MEDICAID ==
[~2021-02-10] VITALS: Ht 167.6 cm; Wt 83.5 kg
--- NOTE | 2021-02-10 02:21 | NUR ---
pt presents to the ed with cyclic vomitting syndrome. pt states this happens during her period. pt states she is at the end of her period. pt resting on gurney, and placed on continuous monitoring. ERP at bedside, order ekg for IV haldol and IVF. 20 G IV started to the Right AC.
[2021-02-10] MEDS ORDERED: PROMETHAZINE 25 MG/ML, 1ML IM ONE (02:30)
[2021-02-10] MEDS ORDERED: ONDANSETRON 2MG/ML, 2ML IVPush ONE (02:30)
[2021-02-10] MEDS ORDERED: FAMOTIDINE 20 MG/2 ML IVPush ONE (02:30)
[2021-02-10] MEDS ORDERED: SODIUM CHLORIDE 0.9% 1,000ML IVBOLUS ONE (02:30)
[2021-02-10] MEDS ORDERED: SODIUM CHLORIDE FLUSH 10ML SYR IVF ONE (02:30)
[2021-02-10] MEDS ORDERED: HALOPERIDOL 5 MG/ML IV ONE (02:30)
[2021-02-10] MEDS ORDERED: PROMETHAZINE 25 MG/ML, 1ML ONE (02:36)
[2021-02-10] MEDS ORDERED: ONDANSETRON 2MG/ML, 2ML ONE (02:36)
[2021-02-10] MEDS ORDERED: HALOPERIDOL 5 MG/ML ONE (02:36)
[2021-02-10] MEDS ORDERED: FAMOTIDINE 20 MG/2 ML ONE (02:37)
--- NOTE | 2021-02-10 03:00 | NUR ---
pt resting on gurney, denies needs at this time.
[2021-02-10 03:21] LABS: BASOPHILS % (AUTO) 0 % (0-1); EOSINOPHILS % (AUTO) 0 % (1-7); LYMPHOCYTES % (AUTO) 12 % (22-44); MEAN CORPUSCULAR HGB CONC 34.3 g/dL (32.4-35.8); MEAN PLATELET VOLUME 8.3 fL (7.4-10.4); MONOCYTES % (AUTO) 2 % (2-9); NEUTROPHILS % (AUTO) 85 % (42-75); PLATELET COUNT 379 x10^3/uL (130-400); RED BLOOD COUNT 4.82 x10^6/uL (3.82-5.3); RED CELL DISTRIBUTION WIDTH 17.1 % (9.6-15.2)
[2021-02-10 03:36] LABS: ALANINE AMINOTRANSFERASE 23 U/L (12-78); ALBUMIN 3.5 g/dL (3.4-5.0); ANION GAP 10 mmol/L (5-15); CALCIUM 8.3 mg/dL (8.5-10.1); CHLORIDE 106 mmol/L (98-107)
[2021-02-10 03:41] LABS: ALKALINE PHOSPHATASE 100 U/L (45-117); BILIRUBIN,TOTAL 0.3 mg/dL (0.2-1.0); CREATININE 0.78 mg/dL (0.55-1.02)
--- NOTE | 2021-02-10 04:23 | NUR ---
pt up to the bathroom, gait steady.
[2021-02-10] MEDS ORDERED: AMIT75TA PO (04:26)
--- NOTE | 2021-02-10 04:55 | NUR ---
Pt to be admitted to Medical, room 367. Report called to FELIPE Saleem.
[2021-02-10] MEDS ORDERED: PROMETHAZINE 25 MG SUPP PR PRN (05:00)
[2021-02-10] MEDS ORDERED: DIPHENHYDRAMINE 50 MG/ML, 1ML IVPush ONE (05:00)
[2021-02-10] MEDS ORDERED: METOCLOPRAMIDE 5 MG/ML, 2ML IVPush PRN (05:00)
[2021-02-10] MEDS ORDERED: ONDANSETRON 2MG/ML, 2ML IVPush PRN (05:00)
[2021-02-10] MEDS ORDERED: ACETAMINOPHEN 325 MG TABLET PO PRN (05:00)
[2021-02-10] MEDS ORDERED: OXYcodone IR 5MG TABLET PO PRN (05:00)
[2021-02-10 05:15] VITALS: BP 149/93
[2021-02-10] MEDS: LACTATED RINGERS 1,000 ML IV SCH ×2 (05:31→10:25)
[2021-02-10 07:02] VITALS: BP 132/83
[2021-02-10] MEDS ORDERED: PROMETHAZINE 25 MG/ML, 1ML IM PRN ×2 (12:00)
[2021-02-10] MEDS: OMEPRAZOLE 20 MG CAPSULE.DR PO SCH (14:30)
[2021-02-10] MEDS: BUSPIRONE 5 MG TABLET PO SCH ×2 (14:30→20:43)
[2021-02-10] MEDS: CITALOPRAM 20 MG TABLET PO SCH (14:30)
[2021-02-10 14:37] VITALS: BP 124/74
[2021-02-10] MEDS ORDERED: POTASSIUM CHLORIDE 20 MEQ TAB.ER.PRT PO ONE ×2 (17:00→20:00)
[2021-02-10 18:11] LABS: ALBUMIN 3.1 g/dL (3.4-5.0); ANION GAP 7 mmol/L (5-15); CALCIUM 8.3 mg/dL (8.5-10.1); CHLORIDE 104 mmol/L (98-107); CREATININE 0.72 mg/dL (0.55-1.02)
[2021-02-10 18:33] VITALS: BP 146/79
[2021-02-10] MEDS ORDERED: DIPHENHYDRAMINE 25 MG CAPSULE PO PRN (20:30)
[2021-02-10] MEDS ORDERED: AMITRIPTYLINE 75 MG TABLET PO SCH (21:00)
[2021-02-11 00:35] VITALS: BP 108/67
[2021-02-11] MEDS ORDERED: POTASSIUM CHLORIDE 20 MEQ TAB.ER.PRT PO ONE (06:30)
[2021-02-11 07:43] VITALS: BP 129/84
[2021-02-11] MEDS: BUSPIRONE 5 MG TABLET PO SCH (08:26)
[2021-02-11] MEDS: CITALOPRAM 20 MG TABLET PO SCH (08:26)
[2021-02-11] MEDS: OMEPRAZOLE 20 MG CAPSULE.DR PO SCH (08:26)
[2021-02-11 12:09] VITALS: BP 120/76
[2021-02-11 13:02] LABS: ALBUMIN 3.4 g/dL (3.4-5.0); ANION GAP 7 mmol/L (5-15); CALCIUM 8.6 mg/dL (8.5-10.1); CHLORIDE 109 mmol/L (98-107)
== END 2021-02-11 13:39 | disposition home or self-care (01) ==
LOC: ED 02:43 → EDIP 04:20 → INTOOBSV 04:20 → 3N 05:14
PROVIDERS: ADMIT Student in an Organized Health Care Education/Training Program; ATTEND Internal Medicine
DX: R11.2 Nausea with vomiting, unspecified (principal); E87.6 Hypokalemia; E86.0 Dehydration; D72.829 Elevated white blood cell count, unspecified; E87.2 Acidosis; F17.210 Nicotine dependence, cigarettes, uncomplicated; F12.90 Cannabis use, unspecified, uncomplicated; Z63.8 Other specified problems related to primary support group; Z79.899 Other long term (current) drug therapy
CPT/HCPCS: 36415; 80053; 80069; 83690; 83735; 84703; 85025; 93005; 96361; 96372; 96374; 96375; 99284; G0378; J1200; J1630; J2405; J2550; J2765; J7030; J7120; Q0163

== ENCOUNTER 2021-02-15 10:26 | Observation (INO) | payer MEDICAID ==
[~2021-02-15] VITALS: Ht 167.6 cm; Wt 85.0 kg
[~2021-02-15 10:26] MED LIST changes: +AMIT75TA PO
[2021-02-15] MEDS ORDERED: ONDANSETRON ODT 4 MG ONE (10:56)
[2021-02-15] MEDS ORDERED: ZIPRASIDONE 20 MG INJ IM ONE ×3 (11:00→15:30)
[2021-02-15] MEDS ORDERED: SODIUM CHLORIDE 0.9% 1,000ML IVBOLUS ONE (11:00)
[2021-02-15] MEDS ORDERED: SODIUM CHLORIDE FLUSH 10ML SYR IVF ONE (11:00)
[2021-02-15] MEDS ORDERED: FAMOTIDINE 20 MG/2 ML IVPush ONE (11:00)
[2021-02-15] MEDS ORDERED: ONDANSETRON 2MG/ML, 2ML IVPush ONE (11:00)
--- NOTE | 2021-02-15 11:00 | NUR ---
GIVEN ZOFRAN FOR N/V IN TRIAGE. PA OK
--- NOTE | 2021-02-15 12:20 | NUR ---
AMBULATORY TO ROOM FROM PEEWEE.
[2021-02-15 12:28] LABS: BASOPHILS % (AUTO) 0 % (0-1); EOSINOPHILS % (AUTO) 1 % (1-7); LYMPHOCYTES % (AUTO) 10 % (22-44); MEAN CORPUSCULAR HEMOGLOBIN 30.9 pg (27.0-34.8); MEAN CORPUSCULAR HGB CONC 34.3 g/dL (32.4-35.8); MEAN PLATELET VOLUME 8.6 fL (7.4-10.4); MONOCYTES % (AUTO) 5 % (2-9); NEUTROPHILS % (AUTO) 84 % (42-75); PLATELET COUNT 392 x10^3/uL (130-400); RED BLOOD COUNT 5.24 x10^6/uL (3.82-5.3); RED CELL DISTRIBUTION WIDTH 17.3 % (9.6-15.2)
[2021-02-15 12:39] LABS: ALBUMIN 3.9 g/dL (3.4-5.0); ANION GAP 4 mmol/L (5-15); CALCIUM 10.2 mg/dL (8.5-10.1); CHLORIDE 109 mmol/L (98-107)
[2021-02-15 12:47] LABS: ALANINE AMINOTRANSFERASE 23 U/L (12-78); ALKALINE PHOSPHATASE 112 U/L (45-117); BILIRUBIN,TOTAL 0.4 mg/dL (0.2-1.0); TOTAL PROTEIN 8.7 g/dL (6.4-8.2)
[2021-02-15] MEDS ORDERED: ONDANSETRON 2MG/ML, 2ML ONE (13:14)
[2021-02-15] MEDS ORDERED: FAMOTIDINE 20 MG/2 ML ONE (13:15)
--- NOTE | 2021-02-15 13:20 | NUR ---
Here for cylical vomiting; started at 0500. LMP: 02/07/21. No anti-emetic taken today.
--- NOTE | 2021-02-15 13:45 | NUR ---
Break RN note: PIV inserted and pt medicated per MAR. Pt advised not to eat or drink anything until her nausea is resolved. Pt denies other needs.
--- NOTE | 2021-02-15 14:33 | NUR ---
Break RN note: Pt resting in bed with eyes closed, resp even and unlabored, NADN.
--- NOTE | 2021-02-15 15:35 | NUR ---
Break RN note: Pt continues resting in bed with eyes closed, resp even and unlabored, NADN.
--- NOTE | 2021-02-15 16:10 | NUR ---
REPORT FROM CALEB, ASSUME CARE OF PT AT THIS TIME.
--- NOTE | 2021-02-15 17:28 | NUR ---
PT SLEEPING, NAD. NO VOMIT IN EMESIS BAG. VSS/UPDATED IN COMPUTER. AWAITING RECHECK BY ERP.
[2021-02-15] MEDS ORDERED: HALOPERIDOL 5 MG/ML IM ONE (17:50)
--- NOTE | 2021-02-15 17:58 | NUR ---
ADD ON ORDERS NOTED AND DISCUSSED WITH DR REED. PER DR REED, HALDOL AND BENADRYL TO BE TREATED PRN ORDERS SINCE PT HAS BEEN SLEEPING SOUNDLY AND WITHOUT EMESIS FOR MANY HOURS.
[2021-02-15] MEDS ORDERED: DIPHENHYDRAMINE 50 MG/ML, 1ML IVPush ONE (18:00)
--- NOTE | 2021-02-15 18:12 | NUR ---
MED REC REVIEWED.
--- NOTE | 2021-02-15 18:33 | NUR ---
[facility] IN TO SEE PT.
[2021-02-15] MEDS ORDERED: POLYETHYLENE GLYCOL 17 GM PACKET PO PRN (19:00)
[2021-02-15] MEDS ORDERED: ACETAMINOPHEN 325 MG TABLET PO PRN (19:00)
[2021-02-15] MEDS ORDERED: HALOPERIDOL 5 MG/ML IM PRN (19:00)
[2021-02-15] MEDS ORDERED: LABETALOL 5MG/ML, 20ML IVPush PRN (19:00)
--- NOTE | 2021-02-15 19:06 | NUR ---
Liss pugh in [facility] - 02/15/21 at 1907 by BETTIE REPORT TO LITO WANG, TRANSFER OF CARE AT THIS TIME.
--- NOTE | 2021-02-15 19:07 | NUR ---
REPORT TO HOLA MORSE READY FOR TRANSPORT.
[2021-02-15] MEDS ORDERED: DRONABINOL 5 MG CAPSULE PO ONE (19:23)
[2021-02-15] MEDS ORDERED: ENOXAPARIN 40 MG/0.4 ML SQ SCH (19:30)
[2021-02-15] MEDS: DIPHENHYDRAMINE 50 MG/ML, 1ML IVPush PRN (19:34)
[2021-02-15] MEDS: PROMETHAZINE 25 MG/ML, 1ML IM PRN (19:35)
[2021-02-15] MEDS: FAMOTIDINE 20 MG/2 ML IVPush SCH (19:35)
[2021-02-15] MEDS ORDERED: PANT40TA6 PO (20:00)
[2021-02-15 20:33] VITALS: BP 126/78
[2021-02-16] MEDS: DIPHENHYDRAMINE 50 MG/ML, 1ML IVPush PRN ×3 (01:10→12:02)
[2021-02-16] MEDS: PROMETHAZINE 25 MG/ML, 1ML IM PRN ×2 (01:10→06:37)
[2021-02-16 01:14] VITALS: BP 124/77
[2021-02-16 04:24] LABS: BASOPHILS % (AUTO) 1 % (0-1); EOSINOPHILS % (AUTO) 2 % (1-7); LYMPHOCYTES % (AUTO) 24 % (22-44); MEAN CORPUSCULAR HEMOGLOBIN 30.5 pg (27.0-34.8); MEAN CORPUSCULAR HGB CONC 33.7 g/dL (32.4-35.8); MEAN PLATELET VOLUME 8.4 fL (7.4-10.4); MONOCYTES % (AUTO) 7 % (2-9); NEUTROPHILS % (AUTO) 66 % (42-75); PLATELET COUNT 363 x10^3/uL (130-400); RED BLOOD COUNT 4.54 x10^6/uL (3.82-5.3); RED CELL DISTRIBUTION WIDTH 17.5 % (9.6-15.2)
[2021-02-16 04:34] LABS: ANION GAP 9 mmol/L (5-15); CHLORIDE 105 mmol/L (98-107); CREATININE 0.74 mg/dL (0.55-1.02)
[2021-02-16] MEDS: KETOROLAC 30 MG/1 ML IV PRN ×2 (06:38→12:02)
[2021-02-16 07:12] VITALS: BP 120/76
[2021-02-16] MEDS ORDERED: LORazepam 2 MG/ML, 1ML IVPush PRN (09:00)
[2021-02-16] MEDS ORDERED: DRONABINOL 5 MG CAPSULE PO SCH (09:00)
[2021-02-16] MEDS ORDERED: NS + 40MEQ KCL 1,000 ML IV SCH (09:00)
[2021-02-16] MEDS ORDERED: CAPSAICIN CRM 0.075%, 60GM TP SCH (09:00)
[2021-02-16] MEDS ORDERED: CAPS57CR2 TP (11:53)
[2021-02-16] MEDS ORDERED: LORA2ORA7 PO (11:53)
[2021-02-16] MEDS: FAMOTIDINE 20 MG/2 ML IVPush SCH (12:03)
== END 2021-02-16 14:00 | disposition home or self-care (01) ==
LOC: ED 13:19 → INTOOBSV 17:52 → EDIP 17:52 → 4NW 19:20
PROVIDERS: ADMIT Internal Medicine; ATTEND Internal Medicine
DX: R11.2 Nausea with vomiting, unspecified (principal); E86.0 Dehydration; E87.6 Hypokalemia; E66.9 Obesity, unspecified; F12.20 Cannabis dependence, uncomplicated; F17.200 Nicotine dependence, unspecified, uncomplicated; Z68.30 Body mass index [BMI] 30.0-30.9, adult; Z79.899 Other long term (current) drug therapy
CPT/HCPCS: 36415; 74021; 80048; 80053; 84703; 85025; 96361; 96372; 96374; 96375; 96376; 99284; G0378; J1200; J1650; J1885; J2405; J2550; J3486; J7030